=== PATIENT | female | born 1945 | race Caucasian/White ===

== ENCOUNTER 2017-09-14 08:00 | Outpatient (CLI) | payer MEDICARE ==
[2017-09-14 13:20] LABS: ALBUMIN 4.1 g/dL (3.2-5.5); ALBUMIN/GLOBULIN RATIO 1.7 (1.0-2.2); ALKALINE PHOSPHATASE 89 IU/L (42-121); ALT ALANINE AMINOTRANSFERASE 16 IU/L (10-60); AST ASPARTATE AMINOTRANSFERASE 20 IU/L (10-42); BILIRUBIN,TOTAL 0.5 mg/dL (0.2-1.0); BUN - BLOOD UREA NITROGEN 20 mg/dL (6-20); CARBON DIOXIDE - CO2 29 mmol/L (21-32); CHLORIDE 102 mmol/L (101-111); CHOLESTEROL 243 mg/dL; GFR - MDRD 54 (>89); GLUCOSE 98 mg/dL (70-100); HDL CHOLESTEROL 61 mg/dL; LDL CHOLESTEROL,CALCULATED 143 mg/dL; LDL/HDL RATIO 2.3 (<4.4); SODIUM 139 mmol/L (135-145); TOTAL PROTEIN 6.5 g/dL (6.7-8.2); VLDL CHOLESTEROL 39 mg/dL
[2017-09-14 13:26] LABS: BASOPHILS % (AUTO) 0.6 %; EOSINOPHILS # (AUTO) 0.2 10^3/uL (0.0-0.7); EOSINOPHILS % (AUTO) 3.9 %; HGB - HEMOGLOBIN 15.4 g/dL (12.0-16.0); LYMPHOCYTES # (AUTO) 0.9 10^3/uL (1.5-3.5); LYMPHOCYTES % (AUTO) 16.9 %; MEAN CORPUSCULAR HEMOGLOBIN 31.1 pg (27.0-31.0); MEAN CORPUSCULAR VOLUME 91.6 fL (81.0-99.0); MONOCYTES # (AUTO) 0.5 10^3/uL (0.0-1.0); MONOCYTES % (AUTO) 9.8 %; NEUTROPHILS # (AUTO) 3.5 10^3/uL (1.5-6.6); NEUTROPHILS % (AUTO) 68.8 %; RED BLOOD COUNT 4.96 10^6/uL (4.20-5.40); RED CELL DISTRIBUTION WIDTH 12.9 % (12.0-15.0); WHITE BLOOD COUNT 5.1 x10^3/uL (4.8-10.8)
== END 2017-09-14 08:01 | disposition home or self-care (01) ==
LOC: LAB.WCP 08:00
PROVIDERS: ATTEND Physician Assistant Medical
DX: E78.5 Hyperlipidemia, unspecified (principal); K21.9 Gastro-esophageal reflux disease without esophagitis
CPT/HCPCS: 36415; 80053; 80061; 85025

== ENCOUNTER 2018-05-14 09:07 | Emergency (ER) | payer MEDICARE, BC ==
[2018-05-14 09:24] VITALS: BP 133/66
== END 2018-05-14 09:56 | disposition left against medical advice (07) ==
LOC: ED 09:07
DX: Z53.21 Procedure and treatment not carried out due to patient leaving prior to being seen by health care provider (principal)

== ENCOUNTER 2018-09-11 11:15 | Emergency (ER) | payer MEDICARE, BC ==
[2018-09-11] MEDS ORDERED: DEXAMETHASONE 10 MG/ML VIAL PO STA (12:02)
[2018-09-11] MEDS ORDERED: CHERRY SYRUP 10 ML UDC PO ONE (12:09)
--- NOTE | 2018-09-11 13:40 | XRAY Report ---
Reason: Twisting injury with pop, pain with weight bearing Procedure Date: 09/11/2018 Accession Number: [id number] / [id number] Procedure: XR - Hip w/Pelvis 2-3V LT CPT Code: FULL RESULT: EXAM: LEFT HIP AND PELVIS RADIOGRAPHY EXAM DATE: 09/11/2018 12:20 PM. HISTORY: Twisting injury with pop, pain with weight bearing. COMPARISONS: 02/23/2017. TECHNIQUE: 1 view of the pelvis and 1 view of the hip. FINDINGS: Bones: The bones are intact without evidence of a fracture. There is minor enthesopathy of the iliac wings and greater trochanters bilaterally. There are old healed fracture deformities of the left superior and inferior pubic rami. Joints: Normal joint alignment. The upper portions of the sacroiliac joints are not visualized well and may be fused. Possible chondrocalcinosis in the pubic symphysis. Multilevel disk space narrowing and facet hypertrophy in the lower lumbar spine. Soft Tissues: Normal. No soft tissue swelling. IMPRESSION: No acute abnormality. RADIA
--- NOTE | 2018-09-11 13:58 | ED Physician Documentation ---
PD HPI LOWER EXT INJURY - Stated complaint Stated Complaint: L HIP PX - Chief complaint Chief Complaint: Ext Problem - History obtained from History obtained from: Patient, Family - History of Present Illness PD HPI LOW EXT INJURY LOCATION: Left, Hip Type of injury: Twist Where injury occurred: Home Timing - onset: Today Timing - duration: Minutes Timing - details: Abrupt onset, Still present Improved by: Rest, Immobilization Worsened by: Moving, Palpating Associated symptoms: No: Weakness, Numbness, Tingling, Swelling Contributing factors: No: Anticoagulated Similar symptoms before: Has not had sx before Recently seen: Not recently seen - Additional information Additional information: 73-year-old female in her usual good state of health was in the shower today when she turned a specific way felt a pop and has severe pain in her left hip. This brought her to her knees and she needed assistance. She is come in now with pain in the posterior portion of her hip and she is able to move the leg without exacerbating this. Review of Systems Constitutional: denies: Fever Eyes: denies: Decreased vision Ears: denies: Ear pain Nose: denies: Congestion Throat: denies: Sore throat Cardiac: denies: Chest pain / pressure, Palpitations Respiratory: denies: Dyspnea, Cough GI: denies: Abdominal Pain, Nausea, Vomiting, Constipation, Diarrhea : denies: Dysuria Skin: denies: Rash Musculoskeletal: reports: Extremity pain. 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 HEENT: None Psych: None Musculoskeletal: Osteoarthritis Derm: None Other Past Medical History: esophagus nutcracker disorder - Past Surgical History Past Surgical History: Yes Ortho: Arthroscopic surgery /BUSINESS BANKING OFFICER: Hysterectomy, Mastectomy - Present Medications Home Medications: Ambulatory Orders Medication Instructions Recorded Confirmed traZODone [Desyrel] 50 mg PO HS 04/08/15 09/11/18 Methocarbamol [Robaxin-750] 750 mg ORAL DAILY 09/11/18 09/11/18 Omeprazole 40 mg ORAL DAILY 09/11/18 09/11/18 - Allergies Allergies/Adverse Reactions: Allergies Allergy/AdvReac Type Severity Reaction Status Date / Time hydrocodone bitartrate * AdvReac Intermediate "completely Verified 09/11/18 11:25 [From Vicodin] out of it after only one" oxycodone AdvReac Hallucinati Verified 09/11/18 11:25 ons - Social History Does the pt smoke?: No Smoking Status: Never smoker Does the pt drink ETOH?: No Does the pt have substance abuse?: No - Immunizations Immunizations are current?: No Immunizations: TDAP current <10years - POLST Patient has POLST: No PD ED PE NORMAL - Vitals Vital signs reviewed: Yes (normal ) - General General: No acute distress, Well developed/nourished - HEENT HEENT: Atraumatic, PERRL, EOMI - Neck Neck: Supple, no meningeal sign - Respiratory Respiratory: No respiratory distress - Derm Derm: Normal color, Warm and dry, No rash - Extremities Extremities: No deformity, No edema, Other (There is specific point tenderness to the left posterior trochanter. There is no pain to ROM testing of the joint itself and distal n/v is intact. 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, No motor deficit, No sensory deficit, Normal speech Eye Opening: Spontaneous Motor: Obeys Commands Verbal: Oriented GCS Score: 15 - Psych Psych: Normal mood, Normal affect Results - Vitals Vitals: Vital Signs - 24 hr 09/11/18 11:22 Temperature 37 C Heart Rate 66 Respiratory 18 Rate Blood Pressure 126/68 O2 Saturation 100 Oxygen O2 Source Room air - Rads (name of study) left hip Radiology: Prelim report reviewed (Impression: No acute abnormality.), EMP read indepedently, See rad report PD MEDICAL DECISION MAKING - ED course Complexity details: considered differential, d/w patient, d/w family ED course: 73-year-old female with a twisting injury resulting in severe right hip pain appears to have pain in the posterior bursal area to the trochanter. She is administered dexamethasone 10 mg orally and x-rays without evidence of fracture she has improvement in her pain while she is here in the emergency department. She is instructed to seek orthopedic follow-up if she has worsening of her pain. Departure - Departure Disposition: Home, Self Care Clinical Impression: Trochanteric bursitis of left hip Instructions: ED Bursitis Follow-Up: Melissa Corona PA-C [Primary Care Provider] - Eduardo Serna DO [Physician No Access] -
[2018-09-11 14:24] VITALS: BP 126/65
== END 2018-09-11 14:23 | disposition home or self-care (01) ==
LOC: ED 11:15
DX: M70.62 Trochanteric bursitis, left hip (principal); X50.1XXA Overexertion from prolonged static or awkward postures, initial encounter; Y93.E1 Activity, personal bathing and showering; Y92.002 Bathroom of unspecified non-institutional (private) residence as the place of occurrence of the external cause; M19.90 Unspecified osteoarthritis, unspecified site; Z85.3 Personal history of malignant neoplasm of breast
CPT/HCPCS: 73502; 99283; A9270

== ENCOUNTER 2018-11-08 07:53 | Outpatient (CLI) | payer MEDICARE, BC ==
--- NOTE | 2018-11-09 09:11 | Mammography Report ---
Reason: SCREENING MAMMO Procedure Date: 11/08/2018 Accession Number: [id number] / [id number] Procedure: ALYES - Screening Mammo Left w/Robert CPT Code: FULL RESULT: EXAM: Screening Mammo Left w/Robert DATE: 11/08/2018 8:59 AM CLINICAL HISTORY: Screening encounter. Personal history of right breast cancer status post mastectomy in 1986. TECHNIQUE: Left breast CC and MLO images are obtained. COMPARISON: 02/22/2016 through 11/15/2010. FINDINGS: Left breast demonstrates scattered fibroglandular elements. A few well-circumscribed isodense nodules measuring 5 mm or less demonstrated greater than two-year stability, typically benign. No suspicious masses, clustered microcalcifications, or regions of architectural distortion are identified. IMPRESSION: Benign findings RECOMMENDATION: Routine annual screening unless otherwise clinically indicated. BIRADS CATEGORY 2: Benign findings STANDARD QUALIFYING STATEMENTS: 1. This examination was not reviewed with the aid of Computer-Aided Detection (CAD). 2. A negative or benign imaging report should not delay biopsy if clinically suspicious findings are present. Consider surgical consultation if warrented. More than 5% of cancers are not identified by imaging. 3. Dense breasts may obscure an underlying neoplasm. 4. This examination was reviewed with the aid of 3D breast imaging (tomosynthesis).
== END 2018-11-08 07:54 | disposition home or self-care (01) ==
LOC: DI 07:53
DX: Z12.31 Encounter for screening mammogram for malignant neoplasm of breast (principal); Z85.3 Personal history of malignant neoplasm of breast; Z90.11 Acquired absence of right breast and nipple
CPT/HCPCS: 77063

== ENCOUNTER 2018-11-12 11:26 | Outpatient (CLI) | payer MEDICARE, BC ==
--- NOTE | 2018-11-12 14:16 | XRAY Report ---
Reason: HAND PAIN, LEFT Procedure Date: 11/12/2018 Accession Number: [id number] / [id number] Procedure: WCP - Hand 2 View LT CPT Code: FULL RESULT: EXAM: LEFT HAND RADIOGRAPHY EXAM DATE: 11/12/2018 11:39 AM. CLINICAL HISTORY: HAND PAIN, LEFT. COMPARISON: None. TECHNIQUE: 2 views. FINDINGS: Bones: No fractures or bone lesions. Joints: Arthritis at the base of the thumb is again seen, status post trapezium resection. Soft Tissues: Normal. No soft tissue swelling. IMPRESSION: Status post trapezium resection. RADIA
--- NOTE | 2018-11-12 14:20 | XRAY Report ---
Reason: DYSPNEA ON EXERTION Procedure Date: 11/12/2018 Accession Number: [id number] / [id number] Procedure: WCP - Chest 2 View X-Ray CPT Code: 27136 FULL RESULT: EXAM: CHEST RADIOGRAPHY EXAM DATE: 11/12/2018 11:39 AM. CLINICAL HISTORY: DYSPNEA ON EXERTION. COMPARISON: CHEST 2 VIEW 09/21/2017 11:10 AM. TECHNIQUE: 2 views. FINDINGS: Lungs/Pleura: No focal opacities evident. No pleural effusion. No pneumothorax. Normal volumes. Mediastinum: Stable cardiomediastinal silhouette, cardiac size within the upper limits of normal. Other: None. IMPRESSION: No acute cardiopulmonary abnormality. RADIA
== END 2018-11-12 11:27 | disposition home or self-care (01) ==
LOC: DI.WCP 11:26
PROVIDERS: ATTEND Physician Assistant Medical
DX: R06.09 Other forms of dyspnea (principal); M25.542 Pain in joints of left hand
CPT/HCPCS: 71046

== ENCOUNTER 2018-11-15 17:13 | Outpatient (CLI) | payer MEDICARE, BC | END 2018-11-15 17:14 | disposition critical access hospital (66) | LOC: EMS 17:13 | PROVIDERS: ATTEND Surgery | DX: R07.9 Chest pain, unspecified (principal) | CPT/HCPCS: A0425; A0427 ==

== ENCOUNTER 2018-11-15 17:34 | Emergency (ER) | payer MEDICARE, BC ==
[2018-11-15] MEDS ORDERED: NITROGLYCERIN 2% PASTE TOP STA (18:16)
--- NOTE | 2018-11-15 18:18 | ED Physician Documentation ---
PD HPI CHEST PAIN - Stated complaint Stated Complaint: CP - Chief complaint Chief Complaint: Cardiac - History obtained from History obtained from: Patient - History of Present Illness Timing - onset: Other (Starting at rest at 3 PM today she developed substernal chest pressure radiating to the posterior neck. It felt similar to but also different than prior esophageal nutcracker syndrome. She also feels fatigued and short of breath with it. 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 HEENT: None Psych: None Musculoskeletal: Osteoarthritis Derm: None - Past Surgical History Past Surgical History: Yes Ortho: Arthroscopic surgery /GROUP WORK PROGRAM DIRECTOR: Hysterectomy, Mastectomy - Present Medications Home Medications: Ambulatory Orders Medication Instructions Recorded Confirmed traZODone [Desyrel] 50 mg PO HS 04/08/15 11/15/18 Methocarbamol [Robaxin-750] 750 mg ORAL DAILY PRN 09/11/18 11/15/18 Omeprazole 40 mg ORAL DAILY 09/11/18 11/15/18 Azithromycin 250 mg PO DAILY 11/15/18 11/15/18 - Allergies Allergies/Adverse Reactions: Allergies Allergy/AdvReac Type Severity Reaction Status Date / Time hydrocodone bitartrate * AdvReac Intermediate "completely Verified 11/15/18 19:17 [From Vicodin] out of it after only one" oxycodone AdvReac Hallucinati Verified 11/15/18 19:17 ons - Social History Does the pt smoke?: No Smoking Status: Never smoker Does the pt drink ETOH?: No Does the pt have substance abuse?: No - Immunizations Immunizations are current?: No Immunizations: TDAP current <10years - POLST Patient has POLST: No PD ED PE NORMAL - Vitals Vital signs reviewed: Yes - General General: Alert and oriented X 3, No acute distress - HEENT HEENT: PERRL, EOMI, Pharynx benign - Neck Neck: Supple, no meningeal sign, No bony TTP - Cardiac Cardiac: RRR, No murmur - Respiratory Respiratory: No respiratory distress, Clear bilaterally - Abdomen Abdomen: Non tender - Back Back: No CVA TTP, No spinal TTP - Derm Derm: Normal color, Warm and dry - Extremities Extremities: No edema, No calf tenderness / cord - Neuro Neuro: Alert and oriented X 3, Normal speech Results - Vitals Vitals: Vital Signs - 24 hr 11/15/18 11/15/18 11/15/18 17:37 18:33 19:14 Temperature 36.2 C L 36.5 C 36.3 C L Heart Rate 62 57 L 66 Respiratory 20 17 21 Rate Blood Pressure 134/75 H 129/67 128/56 L O2 Saturation 99 97 97 11/15/18 11/15/18 11/15/18 19:50 20:30 20:56 Temperature Heart Rate 65 66 63 Respiratory 15 15 16 Rate Blood Pressure 132/58 H 92/61 103/52 L O2 Saturation 96 97 96 Oxygen O2 Source Room air - EKG (time done) 1743 Rate: Rate (enter#) (58) Rhythm: NSR [place]: Normal Intervals: Normal [place] QRS: Normal Ischemia: Normal ST segments Computer interpretation: Agree with computer - Labs Labs: Laboratory Tests 11/15/18 11/15/18 11/15/18 19:30 19:30 19:30 WBC 5.4 RBC 4.62 Hgb 14.3 Hct 43.2 MCV 93.5 MCH 30.9 MCHC 33.0 RDW 13.5 Plt Count 195 MPV 8.3 Neut # (Auto) 3.1 Lymph # (Auto) 1.7 Wilkes # (Auto) 0.4 Eos # (Auto) 0.1 Baso # (Auto) 0.0 Absolute Nucleated RBC 0.00 Nucleated RBC % 0.0 Sodium 139 Potassium 4.0 Chloride 102 Carbon Dioxide 28 Anion Gap 9.0 BUN 18 Creatinine 0.8 Estimated GFR (MDRD) 70 L Glucose 121 H Calcium 9.0 Total Bilirubin 0.6 AST 20 ALT 15 Alkaline Phosphatase 87 Troponin I < 0.04 Total Protein 6.3 L Albumin 3.8 Globulin 2.5 Albumin/Globulin Ratio 1.5 Lipase 30 11/15/18 21:35 WBC RBC Hgb Hct MCV MCH MCHC RDW Plt Count MPV Neut # (Auto) Lymph # (Auto) [place] # (Auto) Eos # (Auto) Baso # (Auto) Absolute Nucleated RBC Nucleated RBC % Sodium Potassium Chloride Carbon Dioxide Anion Gap BUN Creatinine Estimated GFR (MDRD) Glucose Calcium Total Bilirubin AST ALT Alkaline Phosphatase Troponin I < 0.04 Total Protein Albumin Globulin Albumin/Globulin Ratio Lipase - Rads (name of study) 1v chest Radiology: EMP read contemporaneously (NAD) PD MEDICAL DECISION MAKING - ED course ED course: This is a 73-year-old woman with history of nutcracker esophagus who presents with chest pain. There is no pulse deficits, wide mediastinum or radiation to the back to suggest dissection. Nothing in the history or physical examination to suggest PE. She did have relief although it was fleeting with GI cocktail here x2. Delta troponins were done in the emergency department, both undetectable without change. She did have some increase in her symptoms but no changes on serial EKGs. Departure - Departure Disposition: 01 Home, Self Care Clinical Impression: Atypical chest pain Condition: Good Record reviewed to determine appropriate education?: Yes Instructions: ED Chest Pain Atypical Unkn Cause Comments: Although cardiac testing tonight is reassuring, he should follow-up call your doctor tomorrow for an appointment, he or she will likely want to schedule you for a stress test. Return for new or worsening symptoms.
--- NOTE | 2018-11-15 18:43 | XRAY Report ---
Reason: chest pain Procedure Date: 11/15/2018 Accession Number: [id number] / [id number] Procedure: XR - Chest 1 View X-Ray CPT Code: 61875 FULL RESULT: EXAM: CHEST RADIOGRAPHY EXAM DATE: 11/15/2018 06:12 PM. CLINICAL HISTORY: Chest pain. COMPARISON: CHEST 2 VIEW 11/12/2018 11:21 AM. TECHNIQUE: 1 view. FINDINGS: Lungs/Pleura: No dense consolidation. No large effusion or pneumothorax. No pulmonary edema. Mediastinum: Heart and mediastinal contours are unremarkable. Other: Postoperative changes of prior right mastectomy and reconstruction. IMPRESSION: No acute radiographic pulmonary abnormalities. RADIA
[2018-11-15 19:45] LABS: BASOPHILS % (AUTO) 0.8 %; EOSINOPHILS # (AUTO) 0.1 10^3/uL (0.0-0.7); EOSINOPHILS % (AUTO) 1.1 %; HGB - HEMOGLOBIN 14.3 g/dL (12.0-16.0); LYMPHOCYTES # (AUTO) 1.7 10^3/uL (1.5-3.5); LYMPHOCYTES % (AUTO) 32.4 %; MEAN CORPUSCULAR HEMOGLOBIN 30.9 pg (27.0-31.0); MEAN CORPUSCULAR VOLUME 93.5 fL (81.0-99.0); MEAN PLATELET VOLUME 8.3 fL (7.9-10.8); MONOCYTES # (AUTO) 0.4 10^3/uL (0.0-1.0); MONOCYTES % (AUTO) 7.6 %; NEUTROPHILS # (AUTO) 3.1 10^3/uL (1.5-6.6); NEUTROPHILS % (AUTO) 58.1 %; PLT - PLATELET COUNT 195 10^3/uL (130-450); RED BLOOD COUNT 4.62 10^6/uL (4.20-5.40); RED CELL DISTRIBUTION WIDTH 13.5 % (12.0-15.0); WHITE BLOOD COUNT 5.4 x10^3/uL (4.8-10.8)
[2018-11-15 19:53] LABS: ALBUMIN 3.8 g/dL (3.2-5.5); ALBUMIN/GLOBULIN RATIO 1.5 (1.0-2.2); BILIRUBIN,TOTAL 0.6 mg/dL (0.2-1.0); CREATININE 0.8 mg/dL (0.4-1.0); TOTAL PROTEIN 6.3 g/dL (6.7-8.2)
[2018-11-15] MEDS ORDERED: MAG HYDROX/AL HYDROX/SIMETH 30 ML UDC PO STA ×2 (20:17→21:14)
[2018-11-15] MEDS ORDERED: LIDOCAINE VISCOUS 2% 15 ML UDC MM STA ×2 (20:17→21:14)
[2018-11-15 21:58] VITALS: BP 106/56
== END 2018-11-15 21:59 | disposition home or self-care (01) ==
LOC: EDUNIT# → ED 17:34
DX: R07.89 Other chest pain (principal); Z85.3 Personal history of malignant neoplasm of breast; Z90.10 Acquired absence of unspecified breast and nipple
CPT/HCPCS: 36415; 71045; 80053; 83690; 84484; 85025; 93005; 99283; 99284; A9270

== ENCOUNTER 2019-01-24 12:56 | Outpatient (CLI) | payer MEDICARE, BC ==
--- NOTE | 2019-01-25 09:42 | MRI Report ---
Reason: ACUTE TEAR MEDIAL MENISCUS Procedure Date: 01/24/2019 Accession Number: [id number] / [id number] Procedure: MRI - Knee LT W/O CPT Code: FULL RESULT: EXAM: LEFT KNEE MRI WITHOUT CONTRAST EXAM DATE: 01/24/2019 01:52 PM. CLINICAL HISTORY: Acute tear medial meniscus. COMPARISON: MRI 08/19/2008. TECHNIQUE: Multiplanar, multisequence T1-weighted and fluid-sensitive sequences of the knee without contrast. Other: None. FINDINGS: Bones: Moderate to severe bone marrow edema at the medial compartment, slightly progressed. Moderate bone marrow edema and cystic changes at the posterior lateral aspect lateral tibial plateau, slightly progressed. A component of this may be due to intraosseous ganglion. Minimal bone marrow edema at the median ridge of the patella. No fracture. Articular Cartilage: Large regions of full-thickness cartilage loss medial compartment. Shallow partial thickness loss lateral compartment. Moderate to large region of deep partial-thickness loss medial patellar facet. These have slightly progressed. Medial Meniscus: Degenerative fraying at the free edges with subtle horizontal tear contacting the superior articular surface posterior horn, slightly progressed. Lateral Meniscus: Degenerative fraying at the free edges. Cruciate Ligaments: The anterior and posterior cruciate ligaments are intact. Collateral Ligaments: Likely reactive edema at the proximal aspect medial collateral ligament. Lateral collateral ligament normal in morphology. Tendons: Mild patellar tendinopathy, new. Quadriceps, popliteus, and semimembranosus tendons unremarkable. Musculature: No edema or fatty atrophy. Other: Small joint effusion with synovitis. Minimal popliteal cyst with leak. 2.4 cm multilobulated focus of fluid at the posterior lateral aspect lateral compartment, suggestive of ganglion. Subtle 2.0 cm multilobulated ganglion at the anterior aspect proximal fibula, likely arising from the tibiofibular joint. No loose bodies. The medial and lateral retinacula are intact. Mild subcutaneous edema anteriorly. Mild reactive edema in the anterior fat pads. IMPRESSION: 1. Degenerative fraying medial meniscus with subtle horizontal tear posterior horn, slightly progressed. 2. Degenerative fraying lateral meniscus. 3. Reactive edema medial collateral ligament. 4. Tricompartmental cartilage loss, severe at the medial compartment, slightly progressed. 5. Small joint effusion with synovitis. 6. Minimal popliteal cyst with leak. 7. 2.4 cm multilobulated ganglion posterior aspect lateral compartment. This may arise from the proximal tibiofibular joint. 8. 2.0 cm multilobulated ganglion at the anterior aspect proximal fibula, likely arising from the tibiofibular joint. 9. Reactive cyst versus intraosseous ganglion at the posterior lateral margin lateral tibial plateau. 10. New mild patellar tendinopathy. RADIA
== END 2019-01-24 12:57 | disposition home or self-care (01) ==
LOC: DI 12:56
PROVIDERS: ATTEND Family Medicine
DX: S83.242A Other tear of medial meniscus, current injury, left knee, initial encounter (principal); M17.12 Unilateral primary osteoarthritis, left knee; M25.462 Effusion, left knee; M65.862 Other synovitis and tenosynovitis, left lower leg; M71.22 Synovial cyst of popliteal space [Baker], left knee; M67.462 Ganglion, left knee; M23.301 Other meniscus derangements, unspecified lateral meniscus, left knee

== ENCOUNTER 2019-05-11 19:05 | Emergency (ER) | payer MEDICARE, BC ==
--- NOTE | 2019-05-11 19:39 | XRAY Report ---
Reason: chest pain, SOA since noon today Procedure Date: 05/11/2019 Accession Number: [id number] / [id number] Procedure: XR - Chest 1 View X-Ray CPT Code: 03284 FULL RESULT: EXAM: CHEST RADIOGRAPHY EXAM DATE: 05/11/2019 07:15 PM. CLINICAL HISTORY: Chest pain, SOA since noon today. COMPARISON: CHEST 1 VIEW 11/15/2018 5:59 PM XR CHEST PA AND LAT 06/09/2011 12:26 PM. TECHNIQUE: 1 view. FINDINGS: Lungs/Pleura: No focal opacities evident. No pleural effusion. No pneumothorax. Mediastinum: Stable cardiomediastinal silhouette. Other: None. IMPRESSION: No evidence for acute cardiothoracic process. RADIA
[2019-05-11 19:40] LABS: BASOPHILS % (AUTO) 0.3 %; EOSINOPHILS % (AUTO) 0.7 %; HGB - HEMOGLOBIN 14.1 g/dL (12.0-16.0); LYMPHOCYTES # (AUTO) 0.9 10^3/uL (1.5-3.5); LYMPHOCYTES % (AUTO) 15.4 %; MEAN CORPUSCULAR HEMOGLOBIN 29.8 pg (27.0-31.0); MEAN CORPUSCULAR HGB CONC 32.4 g/dL (32.0-36.0); MONOCYTES # (AUTO) 0.6 10^3/uL (0.0-1.0); MONOCYTES % (AUTO) 9.5 %; NEUTROPHILS # (AUTO) 4.5 10^3/uL (1.5-6.6); NEUTROPHILS % (AUTO) 73.8 %; PLT - PLATELET COUNT 146 10^3/uL (130-450); RED BLOOD COUNT 4.73 10^6/uL (4.20-5.40); RED CELL DISTRIBUTION WIDTH 12.9 % (12.0-15.0); WHITE BLOOD COUNT 6.1 x10^3/uL (4.8-10.8)
[2019-05-11 19:52] LABS: ALBUMIN 3.9 g/dL (3.2-5.5); ALBUMIN/GLOBULIN RATIO 1.4 (1.0-2.2); BILIRUBIN,TOTAL 0.5 mg/dL (0.2-1.0); CALCIUM 8.9 mg/dL (8.5-10.3); TOTAL PROTEIN 6.6 g/dL (6.7-8.2)
--- NOTE | 2019-05-11 20:24 | ED Physician Documentation ---
PD HPI CHEST PAIN - Stated complaint Stated Complaint: CP/FEVER - Chief complaint Chief Complaint: Cardiac - History obtained from History obtained from: Patient, Family - History of Present Illness Timing - onset: Enter time (1700), Today Timing - onset during: Rest Timing - duration: Minutes Timing - details: Abrupt onset, Now resolved Quality: Pressure, Sharp Location: Substernal Radiation: Back Improved by: Other (carafate) Worsened by: Eating Associated symptoms: Cough. 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 She eventually took some Carafate and this improved. She became concerned when she developed a fever and cough and she has not felt well this evening. She has been exposed to grandchildren in the last 2 days. She states that she feels ill she is had a fever she is taken some aspirin for this. She does have a prior history of work-up for chest pain including multiple stress test all of which were negative. She has a history of longevity in her family. Review of Systems Constitutional: reports: Fever, Chills, Myalgias, Fatigue Eyes: denies: Decreased vision Ears: reports: Other (dizziness, muffled hearing). denies: Ear pain Nose: reports: Congestion Throat: reports: Other (taste perversion today). denies: Sore throat Cardiac: reports: Chest pain / pressure. denies: Palpitations Respiratory: reports: Cough. 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 : None HEENT: None Psych: None Musculoskeletal: Osteoarthritis Derm: None Other Past Medical History: esophageal nutcracker disorder - Past Surgical History Past Surgical History: Yes Ortho: Arthroscopic surgery /ORDNANCE ARTIFICER HELPER: Hysterectomy, Mastectomy - Present Medications Home Medications: Ambulatory Orders Medication Instructions Recorded Confirmed traZODone [Desyrel] 50 mg PO HS 04/08/15 05/11/19 Methocarbamol [Robaxin-750] 750 mg ORAL DAILY PRN 09/11/18 05/11/19 Omeprazole 40 mg ORAL DAILY 09/11/18 05/11/19 Azithromycin [Zithromax] 250 mg PO DAILY #6 tablet 05/11/19 - Allergies Allergies/Adverse Reactions: Allergies Allergy/AdvReac Type Severity Reaction Status Date / Time hydrocodone bitartrate * AdvReac Intermediate "completely Verified 05/11/19 19:21 [From Vicodin] out of it after only one" oxycodone AdvReac Hallucinati Verified 05/11/19 19:21 ons - Social History Does the pt smoke?: No Smoking Status: Former smoker Does the pt drink ETOH?: No Does the pt have substance abuse?: No - Immunizations Immunizations are current?: Yes Immunizations: TDAP current <10years - POLST Patient has POLST: No PD ED PE NORMAL - Vitals Vital signs reviewed: Yes (low grade fever and hypertension ) - General General: Alert and oriented X 3, Well developed/nourished, Other (look of concern on face stable manager tone and does not feel well ) - HEENT HEENT: Atraumatic, PERRL, EOMI, Other (erythema to the right TM over the umbo and swelling of the right tonsil left is clear. 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-12 intact, No motor deficit, No sensory deficit, Normal speech Eye Opening: Spontaneous Motor: Obeys Commands Verbal: Oriented GCS Score: 15 - Psych Psych: Normal mood, Normal affect Results - Vitals Vitals: Vital Signs - 24 hr 05/11/19 05/11/19 19:13 19:19 Temperature 37.6 C H Heart Rate 63 65 Respiratory 17 16 Rate Blood Pressure 162/71 H 162/71 H O2 Saturation 97 96 Oxygen O2 Source Room air - EKG (time done) 1915 Rate: Rate (enter#) (62) Rhythm: NSR, LAE Ischemia: Normal ST segments Compare to prior EKG: Unchanged from prior EKG (SPT 11-15-2018 no changes ) Computer interpretation: Agree with computer - Labs Labs: Laboratory Tests 05/11/19 05/11/19 05/11/19 19:25 19:25 19:25 WBC 6.1 RBC 4.73 Hgb 14.1 Hct 43.5 MCV 92.0 MCH 29.8 MCHC 32.4 RDW 12.9 Plt Count 146 MPV 10.0 Neut # (Auto) 4.5 Lymph # (Auto) 0.9 L [place] # (Auto) 0.6 Eos # (Auto) 0.0 Baso # (Auto) 0.0 Absolute Nucleated RBC 0.00 Nucleated RBC % 0.0 Sodium 139 Potassium 4.4 Chloride 105 Carbon Dioxide 26 Anion Gap 8.0 BUN 20 Creatinine 1.0 Estimated GFR (MDRD) 54 L Glucose 103 H Calcium 8.9 Total Bilirubin 0.5 AST 19 ALT 17 Alkaline Phosphatase 78 Troponin I High Sens 4.1 Total Protein 6.6 L Albumin 3.9 Globulin 2.7 Albumin/Globulin Ratio 1.4 Lipase 89 H - Rads (name of study) chest Radiology: Prelim report reviewed (Impression: No evidence for acute cardiothoracic process.), EMP read indepedently, See rad report PD MEDICAL DECISION MAKING - ED course Complexity details: reviewed old records, reviewed results, re-evaluated patient, considered differential, d/w patient, d/w family ED course: 73-year-old female presents to the emergency department with chest pain and fever. Her chest pain is similar to what she is had previously with nutcracker esophagus she is had extensive evaluation of this and she has had relief with her typical medication for this when she took the Carafate. She has developed fever and cough and has exposure to 5-4-tnog-old grandchildren and on examination she has right otitis media. She is treated in the emerge department with dexamethasone 10 mg orally and Rocephin 1 g intravenously. Her chest x-ray is without evidence of infiltrate and her diagnostics are otherwise unremarkable. Departure - Departure Disposition: 01 Home, Self Care Clinical Impression: Otitis media Qualifiers: Otitis media type: suppurative Chronicity: acute Laterality: right Recurrence: non-recurrent Spontaneous tympanic membrane rupture: without spontaneous rupture Qualified Code(s): H66.001 - Acute suppurative otitis media without spontaneous rupture of ear drum, right ear Condition: Stable Instructions: ED Otitis Media Acute Adult Follow-Up: Melissa Corona PA-C [Primary Care Provider] - Prescriptions: Azithromycin [Zithromax] 250 mg PO DAILY #6 tablet
[2019-05-11] MEDS ORDERED: CHERRY SYRUP 10 ML UDC PO ONE (20:29)
[2019-05-11] MEDS ORDERED: DEXAMETHASONE 10 MG/ML VIAL PO STA (20:29)
[2019-05-11] MEDS ORDERED: cefTRIAXone 1 GM in SODIUM CHLORIDE 0.9% MINIBAG 100 ML IV STA (20:29)
[2019-05-11 21:08] VITALS: BP 158/51
== END 2019-05-11 21:09 | disposition home or self-care (01) ==
LOC: ED 19:05
DX: H66.001 Acute suppurative otitis media without spontaneous rupture of ear drum, right ear (principal); R07.89 Other chest pain; K22.4 Dyskinesia of esophagus; K21.9 Gastro-esophageal reflux disease without esophagitis; Z87.891 Personal history of nicotine dependence
CPT/HCPCS: 36415; 71045; 80053; 83690; 84484; 85025; 93005; 96365; 99284; A9270

== ENCOUNTER 2019-06-23 02:58 | Outpatient (CLI) | payer MEDICARE, BC | END 2019-06-23 02:59 | disposition critical access hospital (66) | LOC: EMS 02:58 | PROVIDERS: ATTEND Surgery | DX: M25.562 Pain in left knee (principal); R61 Generalized hyperhidrosis | CPT/HCPCS: A0425; A0429 ==

== ENCOUNTER 2019-06-23 03:20 | Emergency (ER) | payer MEDICARE, BC ==
[2019-06-23] MEDS ORDERED: MORPHINE 2 MG/ML CARPUJECT IVP STA (03:32)
[2019-06-23] MEDS ORDERED: ONDANSETRON 4 MG/2 ML VIAL IVP STA (03:33)
[2019-06-23 04:22] LABS: ALBUMIN 3.4 g/dL (3.2-5.5); ALBUMIN/GLOBULIN RATIO 1.2 (1.0-2.2); BILIRUBIN,TOTAL 0.6 mg/dL (0.2-1.0); CALCIUM 9.2 mg/dL (8.5-10.3); CREATININE 0.9 mg/dL (0.4-1.0); TOTAL PROTEIN 6.2 g/dL (6.7-8.2)
[2019-06-23 04:25] LABS: BASOPHILS % (AUTO) 0.4 %; EOSINOPHILS # (AUTO) 0.1 10^3/uL (0.0-0.7); EOSINOPHILS % (AUTO) 2.1 %; HGB - HEMOGLOBIN 13.8 g/dL (12.0-16.0); LYMPHOCYTES % (AUTO) 41.5 %; MEAN CORPUSCULAR HEMOGLOBIN 30.5 pg (27.0-31.0); MEAN CORPUSCULAR VOLUME 92.5 fL (81.0-99.0); MEAN PLATELET VOLUME 9.9 fL (7.9-10.8); MONOCYTES # (AUTO) 0.5 10^3/uL (0.0-1.0); MONOCYTES % (AUTO) 10.2 %; NEUTROPHILS # (AUTO) 2.2 10^3/uL (1.5-6.6); NEUTROPHILS % (AUTO) 45.6 %; PLT - PLATELET COUNT 223 10^3/uL (130-450); RED BLOOD COUNT 4.52 10^6/uL (4.20-5.40); RED CELL DISTRIBUTION WIDTH 12.5 % (12.0-15.0); WHITE BLOOD COUNT 4.8 x10^3/uL (4.8-10.8)
--- NOTE | 2019-06-23 04:41 | XRAY Report ---
Reason: swelling/pain s/p partial replacement Procedure Date: 06/23/2019 Accession Number: [id number] / [id number] Procedure: XR - Knee 2 View LT CPT Code: FULL RESULT: EXAM: LEFT KNEE RADIOGRAPHY EXAM DATE: 06/23/2019 04:15 AM. CLINICAL HISTORY: Swelling/pain status post partial replacement. COMPARISON: None. TECHNIQUE: 2 views. FINDINGS: Bones and Joints: Post medial compartment knee replacement with unremarkable appearing surgical hardware. No fracture or malalignment seen. Joint effusion present. Soft Tissues: Mild soft tissue swelling. IMPRESSION: 1. Post medial compartment knee replacement with unremarkable appearing surgical hardware. 2. No fracture or malalignment seen. 3. Joint effusion present. RADIA
--- NOTE | 2019-06-23 05:09 | ED Physician Documentation ---
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: Breast cancer : None HEENT: None Psych: None Musculoskeletal: Osteoarthritis Derm: None - Past Surgical History Past Surgical History: Yes Ortho: Knee replacement, Arthroscopic surgery /LITERACY SPECIALIST: Hysterectomy, Mastectomy - Present Medications Home Medications: Ambulatory Orders Medication Instructions Recorded Confirmed traZODone [Desyrel] 50 mg PO HS 04/08/15 06/23/19 Methocarbamol [Robaxin-750] 750 mg ORAL DAILY PRN 09/11/18 06/23/19 Omeprazole 40 mg ORAL DAILY 09/11/18 06/23/19 - Allergies Allergies/Adverse Reactions: Allergies Allergy/AdvReac Type Severity Reaction Status Date / Time hydrocodone bitartrate * AdvReac Intermediate "completely Verified 06/23/19 03:33 [From Vicodin] out of it after only one" oxycodone AdvReac Hallucinati Verified 06/23/19 03:33 ons - Social History Does the pt smoke?: No Smoking Status: Never smoker Does the pt drink ETOH?: No Does the pt have substance abuse?: No - Immunizations Immunizations are current?: Yes Immunizations: TDAP current <10years - POLST Patient has POLST: No Results - Vitals Vitals: Vital Signs - 24 hr 06/23/19 06/23/19 06/23/19 03:20 03:41 04:08 Temperature 36.8 C Heart Rate 64 55 L 51 L Respiratory 16 15 16 Rate Blood Pressure 123/61 123/61 126/56 L O2 Saturation 100 98 98 Oxygen O2 Source Room air - Labs Labs: Laboratory Tests 06/23/19 06/23/19 06/23/19 03:45 03:45 03:45 WBC 4.8 RBC 4.52 Hgb 13.8 Hct 41.8 MCV 92.5 MCH 30.5 MCHC 33.0 RDW 12.5 Plt Count 223 MPV 9.9 Neut # (Auto) 2.2 Lymph # (Auto) 2.0 [place] # (Auto) 0.5 Eos # (Auto) 0.1 Baso # (Auto) 0.0 Absolute Nucleated RBC 0.00 Nucleated RBC % 0.0 ESR Sodium 143 Potassium 4.1 Chloride 107 Carbon Dioxide 28 Anion Gap 8.0 BUN 19 Creatinine 0.9 Estimated GFR (MDRD) 61 L Glucose 103 H Lactic Acid 1.2 Calcium 9.2 Total Bilirubin 0.6 AST 15 ALT 11 Alkaline Phosphatase 81 Total Protein 6.2 L Albumin 3.4 Globulin 2.8 Albumin/Globulin Ratio 1.2 Lipase 32 06/23/19 03:45 WBC RBC Hgb Hct MCV MCH MCHC RDW Plt Count MPV Neut # (Auto) Lymph # (Auto) [place] # (Auto) Eos # (Auto) Baso # (Auto) Absolute Nucleated RBC Nucleated RBC % ESR 7 Sodium Potassium Chloride Carbon Dioxide Anion Gap BUN Creatinine Estimated GFR (MDRD) Glucose Lactic Acid Calcium Total Bilirubin AST ALT Alkaline Phosphatase Total Protein Albumin Globulin Albumin/Globulin Ratio Lipase - Rads (name of study) L knee Radiology: Prelim report reviewed (: 1. Post medial compartment knee replacement with unremarkable appearing surgical hardware. 2. No fracture or malalignment seen. 3. Joint effusion present.), EMP read indepedently, See rad report
--- NOTE | 2019-06-23 05:36 | ED Physician Documentation ---
History of Present Illness - Stated complaint Stated Complaint: KNEE WARM/POST-SURG - Chief complaint Chief Complaint: Ext Problem - History obtained from History obtained from: Patient - History of Present Illness Timing: Today - Additonal information Additional information: 73-year-old female has had a right knee partial replacement done about 12 days ago at [facility] by Dr. Serna. She reports that she was recovering well and she went to do her physical therapy on Monday and she was a bit sore on Monday and discontinued the use of her pain medication on Monday. Early this morning she awoke with sweats and she became concerned that her knee appeared swollen and was warm to the touch. She is concerned about the possibility of infection and she has taken the ambulance to the hospital for evaluation. She has increased pain in the knee. She is sensitive to pain medications and was on Tylenol with codeine No. 3. Review of Systems Constitutional: reports: Chills, Sweats. denies: Fever Eyes: denies: Decreased vision Ears: denies: Ear pain Nose: denies: Rhinorrhea / runny nose, Congestion Throat: denies: Sore throat Respiratory: denies: Dyspnea, Cough GI: denies: Vomiting : denies: Dysuria Musculoskeletal: reports: Extremity pain, Joint swelling, Pain with weight bearing. 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 : None HEENT: None Psych: None Musculoskeletal: Osteoarthritis Derm: None - Past Surgical History Past Surgical History: Yes Ortho: Knee replacement, Arthroscopic surgery /HEAD TELLER: Hysterectomy, Mastectomy - Present Medications Home Medications: Ambulatory Orders Medication Instructions Recorded Confirmed traZODone [Desyrel] 50 mg PO HS 04/08/15 06/23/19 Methocarbamol [Robaxin-750] 750 mg ORAL DAILY PRN 09/11/18 06/23/19 Omeprazole 40 mg ORAL DAILY 09/11/18 06/23/19 Acetaminophen/Cod 300/30 [Tylenol 1 - 2 each PO Q4-6H PRN #20 tablet 06/23/19 #3] - Allergies Allergies/Adverse Reactions: Allergies Allergy/AdvReac Type Severity Reaction Status Date / Time hydrocodone bitartrate * AdvReac Intermediate "completely Verified 06/23/19 03:33 [From Vicodin] out of it after only one" oxycodone AdvReac Hallucinati Verified 06/23/19 03:33 ons - Social History Does the pt smoke?: No Smoking Status: Never smoker Does the pt drink ETOH?: No Does the pt have substance abuse?: No - Immunizations Immunizations are current?: Yes Immunizations: TDAP current <10years - POLST Patient has POLST: No PD ED PE NORMAL - Vitals Vital signs reviewed: Yes (normal ) - General General: Alert and oriented X 3, No acute distress, Well developed/nourished - HEENT HEENT: Atraumatic, PERRL, EOMI - Neck Neck: Supple, no meningeal sign - Cardiac Cardiac: RRR, No murmur - Respiratory Respiratory: No respiratory distress, Clear bilaterally - Abdomen Abdomen: Soft, Non tender - Back Back: No CVA TTP, No spinal TTP - Derm Derm: Normal color, Warm and dry, No rash - Extremities Extremities: Other (The left knee is examined and there is swelling without erythema the knee is tender but appears similar to expected post op. The distal n/v is intact) - Neuro Neuro: Alert and oriented X 3, client success specialist 2-12 intact, No motor deficit, No sensory deficit, Normal speech Eye Opening: Spontaneous Motor: Obeys Commands Verbal: Oriented GCS Score: 15 - Psych Psych: Normal mood, Normal affect Results - Vitals Vitals: Vital Signs - 24 hr 06/23/19 06/23/19 06/23/19 03:20 03:41 04:08 Temperature 36.8 C Heart Rate 64 55 L 51 L Respiratory 16 15 16 Rate Blood Pressure 123/61 123/61 126/56 L O2 Saturation 100 98 98 06/23/19 05:16 Temperature Heart Rate 52 L Respiratory 16 Rate Blood Pressure 148/61 H O2 Saturation 98 Oxygen O2 Source Room air - Labs Labs: Laboratory Tests 06/23/19 06/23/19 06/23/19 03:45 03:45 03:45 WBC 4.8 RBC 4.52 Hgb 13.8 Hct 41.8 MCV 92.5 MCH 30.5 MCHC 33.0 RDW 12.5 Plt Count 223 MPV 9.9 Neut # (Auto) 2.2 Lymph # (Auto) 2.0 [place] # (Auto) 0.5 Eos # (Auto) 0.1 Baso # (Auto) 0.0 Absolute Nucleated RBC 0.00 Nucleated RBC % 0.0 ESR Sodium 143 Potassium 4.1 Chloride 107 Carbon Dioxide 28 Anion Gap 8.0 BUN 19 Creatinine 0.9 Estimated GFR (MDRD) 61 L Glucose 103 H Lactic Acid 1.2 Calcium 9.2 Total Bilirubin 0.6 AST 15 ALT 11 Alkaline Phosphatase 81 Total Protein 6.2 L Albumin 3.4 Globulin 2.8 Albumin/Globulin Ratio 1.2 Lipase 32 06/23/19 03:45 WBC RBC Hgb Hct MCV MCH MCHC RDW Plt Count MPV Neut # (Auto) Lymph # (Auto) [place] # (Auto) Eos # (Auto) Baso # (Auto) Absolute Nucleated RBC Nucleated RBC % ESR 7 Sodium Potassium Chloride Carbon Dioxide Anion Gap BUN Creatinine Estimated GFR (MDRD) Glucose Lactic Acid Calcium Total Bilirubin AST ALT Alkaline Phosphatase Total Protein Albumin Globulin Albumin/Globulin Ratio Lipase - Rads (name of study) knee L Radiology: Prelim report reviewed (Impression: 1. Post medial compartment knee replacement with unremarkable appearing surgical hardware. No fracture or malalignment seen. joint effusion present), EMP read indepedently, See rad report PD MEDICAL DECISION MAKING - ED course Complexity details: reviewed results, re-evaluated patient, considered differential, d/w patient, d/w family ED course: 73-year-old female 12 days postop from a partial right knee replacement has increased pain and swelling after doing physical therapy for the first time and discontinuing her pain medication. I believe the sweats she had in the middle the night were likely related to narcotic withdrawal. She is administered morphine here in the emergency department with improvement in her pain. We will place her back on her pain medication and she will follow-up with her orthopedic surgeon. Today we did not find evidence of infection. Her white blood cell count ESR and exam are all consistent with normal postoperative evaluation. Departure - Departure Disposition: 01 Home, Self Care Clinical Impression: Postoperative pain Condition: Stable Instructions: Knee Replace First Month, Knee Replace Swelling, Knee Replace Manage Pain Home Follow-Up: Melissa Corona PA-C [Primary Care Provider] - Eduardo Serna DO [Physician No Access] - Prescriptions: Acetaminophen/Cod 300/30 [Tylenol #3] 1 - 2 each PO Q4-6H PRN #20 tablet PRN Reason: Pain
[2019-06-23 05:39] LABS: BILIRUBIN,URINE NEGATIVE (NEGATIVE); GLUCOSE, URINE (UA) NEGATIVE (NEGATIVE); KETONES,URINE (UA) NEGATIVE (NEGATIVE); LEUKOCYTE ESTERASE, URINE NEGATIVE (NEGATIVE); NITRITE,URINE NEGATIVE (NEGATIVE); OCCULT BLOOD,URINE NEGATIVE (NEGATIVE); PROTEIN,URINE NEGATIVE (NEGATIVE); UROBILINOGEN,URINE 0.2 (NORMAL) E.U./dL (NORMAL)
[2019-06-23 05:41] LABS: CLARITY,URINE CLEAR (CLEAR)
[2019-06-23 06:06] VITALS: BP 144/75
== END 2019-06-23 06:06 | disposition home or self-care (01) ==
LOC: EDUNIT# → ED 03:20
DX: G89.18 Other acute postprocedural pain (principal); Z96.651 Presence of right artificial knee joint; M19.90 Unspecified osteoarthritis, unspecified site; K21.9 Gastro-esophageal reflux disease without esophagitis; Z85.3 Personal history of malignant neoplasm of breast
CPT/HCPCS: 36415; 80053; 81001; 81003; 83605; 83690; 85025; 85651; 87040; 87086; 96374; 96375; 99284

== ENCOUNTER 2019-09-18 11:06 | Outpatient (CLI) | payer MEDICARE, BC ==
--- NOTE | 2019-09-19 08:40 | DEXA Report ---
Reason: OSTEOPOROSIS Procedure Date: 09/18/2019 Accession Number: [id number] / [id number] Procedure: DEX - Dexa Spine and/or Hip CPT Code: Final Report FULL RESULT: EXAM: Dexa Spine and/or Hip DATE: 09/18/2019 11:59 AM CLINICAL HISTORY: POSTMENOPAUSAL. TECHNIQUE: Dual energy x-ray absorptiometry (DXA) was performed on a [employer] System. Regions measured are the AP Spine, femoral neck, and if needed forearm. COMPARISON: None. In accordance with the International Society for Clinical Densitometry (ISCD) guidelines, data from previous exams may be reanalyzed using current recommendations and techniques. This is done to allow a more accurate basis for comparison with the current study. FINDINGS: The data for the lumbar spine is as follows: BMD (g/cm/cm) T-SCORE Z-SCORE REGION L1 0.914 -1.8 -0.3 L2 1.018 -1.5 0.0 L3 1.420 1.8 3.3 L4 1.325 1.0 2.5 TOTAL 1.187 0.1 1.6 NOTE: All evaluable vertebrae are used for classification The data for the hip is as follows: BMD (g/cm/cm) T-SCORE Z-SCORE REGION Neck 0.811 -1.6 0.2 TOTAL 0.825 -1.4 0.1 NOTE: The femoral neck or total proximal femur, whichever is lowest, is used for classification. IMPRESSION: THE WHO CLASSIFICATION BASED ON THE INTERNATIONAL REFERENCE STANDARD IS OSTEOPENIA. THE FRACTURE RISK IS INCREASED. RECOMMENDATION: Patients with diagnosis of osteoporosis or osteopenia should have regular bone mineral density assessment. For those eligible for Medicare, routine testing is allowed once every 2 years. Testing frequency can be increased for patients who have rapidly progressing disease or for those who are receiving medical therapy to restore bone mass. COMMENT: World Health Organization (WHO) definitions for osteoporosis and osteopenia: NORMAL BMD: T-score at -1.0 or higher, fracture risk is low OSTEOPENIA BMD: T-score between -1.0 and -2.5, fracture risk is increased. OSTEOPOROSIS BMD: T-score at -2.5 or lower, fracture risk is high. National Osteoporosis Foundation recommends: 1. Obtain adequate dietary calcium (at least 1200 mg per day) and vitamin D (400-800 international units per day). 2. Participate, as appropriate, in regular weightbearing and muscle-strengthening exercise. 3. Avoid tobacco use and reduce alcohol and caffeine intake. 4. For more detailed information see the website at www.NOF.org.
== END 2019-09-18 11:07 | disposition home or self-care (01) ==
LOC: DI 11:06
PROVIDERS: ATTEND Physician Assistant Medical
DX: Z13.820 Encounter for screening for osteoporosis (principal); M85.88 Other specified disorders of bone density and structure, other site; Z78.0 Asymptomatic menopausal state
CPT/HCPCS: 77080

== ENCOUNTER 2020-09-25 07:32 | Outpatient (CLI) | payer MEDICARE, BC ==
--- NOTE | 2020-09-25 09:10 | XRAY Report ---
PROCEDURE: Shoulder 2 View RT INDICATIONS: RIGHT ARM PAIN TECHNIQUE: 2 views of the shoulder were acquired. COMPARISON: None. FINDINGS: Bones: No acute fractures or dislocations. 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 There are degenerative changes of the acr omioclavicular joint. No suspicious bony lesions. Visualized ribs appear intact. Soft tissues: No suspicious soft tissue calcifications. Round metallic device projects over the low er right chest likely representing tissue tire spotter for breast reconstruction. IMPRESSION: Right shoulder without acute radiographic abnormalities. Findings consistent with calcif ic tendinitis as well as degenerative changes of the acromioclavicular joint. Reviewed by: Forrest Marcus MD on 09/25/2020 8:09 AM RODNEY Approved by: Forrest Marcus MD on 09/25/2020 8:09 AM RODNEY Station ID: [id number]
== END 2020-09-25 07:33 | disposition home or self-care (01) ==
LOC: DI.WCP 07:32
PROVIDERS: ATTEND Physician Assistant Medical
DX: M79.601 Pain in right arm (principal)

== ENCOUNTER 2020-09-28 08:00 | Outpatient (CLI) | payer MEDICARE, BC ==
[2020-09-28 13:24] LABS: BASOPHILS % (AUTO) 0.8 %; EOSINOPHILS # (AUTO) 0.1 10^3/uL (0.0-0.7); EOSINOPHILS % (AUTO) 2.4 %; HGB - HEMOGLOBIN 15.5 g/dL (12.0-16.0); LYMPHOCYTES # (AUTO) 1.4 10^3/uL (1.5-3.5); MEAN CORPUSCULAR HEMOGLOBIN 31.7 pg (27.0-31.0); MEAN CORPUSCULAR HGB CONC 33.6 g/dL (32.0-36.0); MEAN CORPUSCULAR VOLUME 94.3 fL (81.0-99.0); MEAN PLATELET VOLUME 11.4 fL (7.9-10.8); MONOCYTES # (AUTO) 0.3 10^3/uL (0.0-1.0); MONOCYTES % (AUTO) 8.9 %; NEUTROPHILS # (AUTO) 1.9 10^3/uL (1.5-6.6); NEUTROPHILS % (AUTO) 50.6 %; PLT - PLATELET COUNT 127 10^3/uL (130-450); RED BLOOD COUNT 4.89 10^6/uL (4.20-5.40); RED CELL DISTRIBUTION WIDTH 12.7 % (12.0-15.0); WHITE BLOOD COUNT 3.7 x10^3/uL (4.8-10.8)
[2020-09-28 13:44] LABS: ALBUMIN 4.2 g/dL (3.2-5.5); ALBUMIN/GLOBULIN RATIO 1.6 (1.0-2.2); ALKALINE PHOSPHATASE 81 IU/L (42-121); ALT ALANINE AMINOTRANSFERASE 19 IU/L (10-60); AST ASPARTATE AMINOTRANSFERASE 21 IU/L (10-42); BILIRUBIN,TOTAL 0.7 mg/dL (0.2-1.0); BUN - BLOOD UREA NITROGEN 23 mg/dL (6-20); CALCIUM 9.6 mg/dL (8.5-10.3); CARBON DIOXIDE - CO2 27 mmol/L (21-32); CHLORIDE 104 mmol/L (101-111); CHOL/HDL RATIO 3.5 (<4.4); CHOLESTEROL 248 mg/dL; GLUCOSE 106 mg/dL (70-100); HDL CHOLESTEROL 71 mg/dL; LDL CHOLESTEROL,CALCULATED 146 mg/dL; LDL/HDL RATIO 2.1 (<4.4); TOTAL PROTEIN 6.9 g/dL (6.7-8.2); VLDL CHOLESTEROL 31 mg/dL
== END 2020-09-28 23:59 | disposition home or self-care (01) ==
LOC: LAB.WCP 08:00
PROVIDERS: ATTEND Physician Assistant Medical
DX: E78.5 Hyperlipidemia, unspecified (principal); D69.6 Thrombocytopenia, unspecified
CPT/HCPCS: 36415; 80053; 80061; 83721; 85025

== ENCOUNTER 2021-01-01 09:49 | Outpatient (CLI) | payer MEDICARE, BC ==
--- NOTE | 2021-01-01 14:30 | XRAY Report ---
PROCEDURE: Foot 2 View LT INDICATIONS: LEFT FOOT PAIN TECHNIQUE: 2 views of the foot were acquired. COMPARISON: None FINDINGS: Bones: There is a mildly displaced fracture through the midportion of the fifth proximal phalanx. No suspicious bony lesions. Soft tissues: No tibiotalar joint effusion. Achilles tendon appears normal. Soft tissue edema is p resent adjacent to the fifth digit. IMPRESSION: Mildly displaced mid fifth proximal phalanx fracture with adjacent edema. Reviewed by: Vianey House MD on 01/01/2021 2:29 PM PDT Approved by: Vianey House MD on 01/01/2021 2:29 PM PDT Station ID: [id number]
== END 2021-01-01 23:59 | disposition home or self-care (01) ==
LOC: DI.N 09:49
PROVIDERS: ATTEND Nurse Practitioner
DX: S92.512A Displaced fracture of proximal phalanx of left lesser toe(s), initial encounter for closed fracture (principal)

== ENCOUNTER 2021-06-26 19:00 | Emergency (ER) | payer MEDICARE, BC ==
[2021-06-26 19:10] VITALS: BP 158/76
--- NOTE | 2021-06-26 19:34 | ED Physician Documentation ---
PD HPI OPHTHO - Stated complaint Stated Complaint: CHEMICAL IN RT EYE - Chief complaint Chief Complaint: Heent - History obtained from History obtained from: Patient - Additional information Additional information: She dropped a can of sterno and it splashed in her eye with pain. She has irrigated it but still painful. 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 HEENT: None Psych: None Musculoskeletal: Osteoarthritis Derm: None - Past Surgical History Past Surgical History: Yes Ortho: Knee replacement, Arthroscopic surgery /COMMUNITY DEVELOPMENT DIRECTOR: Hysterectomy, Mastectomy - Present Medications Home Medications: Ambulatory Orders Medication Instructions Recorded Confirmed traZODone [Desyrel] 50 mg PO HS 04/08/15 06/26/21 Krill/Om-3/Dha/Epa/Phospho/Ast 1 cap PO DAILY 06/26/21 06/26/21 [Antarctic Krill Oil 500 mg] Nitroglycerin [Nitrostat] 0.4 mg SL Q5MIN PRN 06/26/21 06/26/21 Omeprazole 40 mg PO DAILY 06/26/21 06/26/21 Vitc/E/Zinc/Copper/Lutein/Zeax 1 tab PO DAILY 06/26/21 06/26/21 [Icaps Areds2 Tablet] - Allergies Allergies/Adverse Reactions: Allergies Allergy/AdvReac Type Severity Reaction Status Date / Time hydrocodone bitartrate * AdvReac Intermediate "completely Verified 06/26/21 19:10 [From Vicodin] out of it after only one" oxycodone AdvReac Hallucinati Verified 06/26/21 19:10 ons - Social History Does the pt smoke?: No Smoking Status: Never smoker Does the pt drink ETOH?: No Does the pt have substance abuse?: No - Immunizations Immunizations are current?: Yes Immunizations: TDAP current <10years - POLST Patient has POLST: No PD ED PE NORMAL - Vitals Vital signs reviewed: Yes - General General: Alert and oriented X 3, No acute distress - HEENT HEENT: PERRL, EOMI, Other (Pain-free after proparacaine, no fluorescein uptake. The cornea is clear. The conjunctiva is red.) - Neuro Neuro: Alert and oriented X 3, Normal speech Results - Vitals Vitals: Vital Signs - 24 hr 06/26/21 19:07 Temperature 36.5 C Heart Rate 63 Respiratory 18 Rate Blood Pressure 158/76 H O2 Saturation 97 Oxygen O2 Source Room air PD MEDICAL DECISION MAKING - ED course ED course: After discussion of risks and benefits she was given a 1-10 dilution of proparacaine and she understands that she can use it no more than 24 hours. Departure - Departure Disposition: 01 Home, Self Care Clinical Impression: Chemical exposure of eye Condition: Good Record reviewed to determine appropriate education?: Yes Instructions: ED Chemical Conjunctivitis Follow-Up: Yoel Wlash MD [Provider Admit Priv/Credential] - Comments: Follow-up with the library technology instructor on Monday if not better, that said I suspect you will be completely better within 24 hours. You may use the 1-10 dilution of proparacaine as needed from no more than 24 hours as needed for your symptoms.
== END 2021-06-26 19:51 | disposition home or self-care (01) ==
LOC: ED 19:00
DX: T15.91XA Foreign body on external eye, part unspecified, right eye, initial encounter (principal); X58.XXXA Exposure to other specified factors, initial encounter; Y93.89 Activity, other specified
CPT/HCPCS: 99281; 99283

== ENCOUNTER 2021-08-26 08:00 | Outpatient (CLI) | payer MEDICARE, BC | END 2021-08-26 23:59 | LOC: LAB.N 08:00 | PROVIDERS: ATTEND Nurse Practitioner | DX: R53.81 Other malaise (principal); R53.83 Other fatigue; Z20.822 Contact with and (suspected) exposure to COVID-19 ==

== ENCOUNTER 2021-08-26 12:16 | Emergency (ER) | payer MEDICARE, BC ==
[2021-08-26 12:32] VITALS: BP 127/60
[2021-08-26] MEDS ORDERED: PSEUDOEPHEDRINE 30 MG TABLET PO STA (12:58)
[2021-08-26] MEDS ORDERED: CETIRIZINE 10 MG TABLET PO STA (12:58)
[2021-08-26] MEDS ORDERED: BENZONATATE 100 MG CAPSULE PO STA (12:58)
--- NOTE | 2021-08-26 13:04 | ED Physician Documentation ---
History of Present Illness - Stated complaint Stated Complaint: FEVER/BODY ACHE - Chief complaint Chief Complaint: Fever - History obtained from History obtained from: Patient - History of Present Illness Timing: How many days ago (10) Pain level max: 0 Pain level now: 0 - Additonal information Additional information: 76 year old female with a cough, bodyaches for the past 10 days. Rhinorrhea, congestion. Nothing makes it better or worse. No difficulty breathing. Seen at the walk in clinic today and sent here. Patient states that their "computers were down so they told me to come here". States took nyquil without relief. Has had 2 [employer] covInvolvio vaccinations. Review of Systems Ten Systems: 10 systems reviewed and negative Constitutional: reports: Fever (100.2 at home). 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 HEENT: None Psych: None Musculoskeletal: Osteoarthritis Derm: None - Past Surgical History Past Surgical History: Yes Ortho: Knee replacement, Arthroscopic surgery /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 MAINTENANCE: Hysterectomy, Mastectomy - Present Medications Home Medications: Ambulatory Orders Medication Instructions Recorded Confirmed traZODone [Desyrel] 50 mg PO HS 04/08/15 06/26/21 Krill/Om-3/Dha/Epa/Phospho/Ast 1 cap PO DAILY 06/26/21 06/26/21 [Antarctic Krill Oil 500 mg] Nitroglycerin [Nitrostat] 0.4 mg SL Q5MIN PRN 06/26/21 06/26/21 Omeprazole 40 mg PO DAILY 06/26/21 06/26/21 Vitc/E/Zinc/Copper/Lutein/Zeax 1 tab PO DAILY 06/26/21 06/26/21 [Icaps Areds2 Tablet] Benzonatate [Tessalon] 200 mg PO TID PRN #30 cap 08/26/21 Cetirizine HCl/Pseudoephedrine 1 each PO BID PRN #30 ea 08/26/21 [Zyrtec-D Tablet] - Allergies Allergies/Adverse Reactions: Allergies Allergy/AdvReac Type Severity Reaction Status Date / Time hydrocodone bitartrate * AdvReac Intermediate "completely Verified 08/26/21 12:32 [From Vicodin] out of it after only one" oxycodone AdvReac Hallucinati Verified 08/26/21 12:32 ons - Social History Does the pt smoke?: No Smoking Status: Never smoker Does the pt drink ETOH?: No Does the pt have substance abuse?: No - Immunizations Immunizations are current?: Yes Immunizations: TDAP current <10years - POLST Patient has POLST: No PD ED PE NORMAL - Vitals Vital signs reviewed: Yes - General General: Alert and oriented X 3, No acute distress - HEENT HEENT: Ears normal, Moist mucous membranes, Pharynx benign - Neck Neck: Supple, no meningeal sign - Cardiac Cardiac: RRR, Strong equal pulses - Respiratory Respiratory: No respiratory distress, Clear bilaterally - Abdomen Abdomen: Soft, Non tender, Non distended - Derm Derm: Warm and dry, No rash - Extremities Extremities: No edema - Neuro Neuro: Alert and oriented X 3 - Psych Psych: Normal mood, Normal affect Results - Vitals Vitals: Vital Signs - 24 hr 08/26/21 12:27 Temperature 37.2 C Heart Rate 75 Respiratory 14 Rate Blood Pressure 127/60 O2 Saturation 96 Oxygen O2 Source Room air - Rads (name of study) cxr Radiology: Final report received, EMP read contemporaneously, See rad report (no acute disease) PD MEDICAL DECISION MAKING - ED course Complexity details: reviewed results, re-evaluated patient, considered differential, d/w patient ED course: Patient is a 76-year-old female with what appears to be a viral upper respiratory infection. She is well-appearing, nontoxic. Afebrile. No hypoxia. No respiratory distress. Normal chest x-ray. We will continue supportive care and have her follow-up with her doctor for further care. No evidence of pneumonia, sepsis. Patient counseled regarding signs and symptoms for which I believe and urgent re-evaluation would be necessary. Patient with good understanding of and agreement to plan and is comfortable going home at this time This document was made in part using voice recognition software. While efforts are made to proofread this document, sound alike and grammatical errors may occur. Departure - Departure Disposition: 01 Home, Self Care Clinical Impression: Viral URI Condition: Good Instructions: ED Viral Syndrome Follow-Up: Melissa Corona PA-C [Primary Care Provider] - Within 1 week Prescriptions: Benzonatate [Tessalon] 200 mg PO TID PRN #30 cap PRN Reason: Cough Cetirizine HCl/Pseudoephedrine [Zyrtec-D Tablet] 1 each PO BID PRN #30 ea PRN Reason: nasal congestion Comments: Please use the medications as prescribed. return if you worsen. Follow up with your doctor for further care. Prescriptions were sent to [facility] in [place]. You have a Covid test pending. You need to self quarantine until the result is done and negative. The results should be done in 24-48 hours. We will call with a positive result, the fastest way to get a negative result for confirmation though is to go to the hospital website at [email or web address], click on the [facility] [employer] tab and sign up for the patient portal. If any of your friends and/or family need to be tested, they can call the hospital at [phone] for an appointment to have their Covid test.
--- NOTE | 2021-08-26 14:01 | XRAY Report ---
PROCEDURE: Chest 2 View X-Ray INDICATIONS: cough, fever TECHNIQUE: 2 view(s) of the chest. COMPARISON: CXR 05/11/2019. Lung bases on CT abdomen and pelvis 11/16/2015. FINDINGS: Surgical changes and devices: Right breast implants. Lungs and pleura: No pleural effusions or pneumothorax. Lungs are clear. Mediastinum: Mediastinal contours are unchanged. Heart size is normal. Bones and chest wall: No suspicious bony abnormalities. Soft tissues appear unremarkable. IMPRESSION: No acute cardiopulmonary abnormality. Reviewed by: Bennett Rolle MD on 08/26/2021 1:59 PM [facility] Approved by: Bennett Rolle MD on 08/26/2021 1:59 PM [facility] Station ID: [id number]
== END 2021-08-26 14:13 | disposition home or self-care (01) ==
LOC: ED 12:16
DX: J06.9 Acute upper respiratory infection, unspecified (principal); R53.81 Other malaise; R53.83 Other fatigue; Z20.822 Contact with and (suspected) exposure to COVID-19
CPT/HCPCS: 71046; 99283; A9270; U0004

== ENCOUNTER 2021-09-27 09:06 | Emergency (ER) | payer MEDICARE, BC ==
[2021-09-27] MEDS ORDERED: SODIUM CHLORIDE 0.9% 1,000 ML IV STA (09:33)
[2021-09-27] MEDS ORDERED: ONDANSETRON 4 MG/2 ML VIAL IVP STA (09:33)
--- NOTE | 2021-09-27 09:36 | ED Physician Documentation ---
PD HPI NVD - Stated complaint Stated Complaint: N/V/D - Chief complaint Chief Complaint: Abd Pain - History obtained from History obtained from: Patient - History of Present Illness Timing - onset: Enter time (299), Today Timing - duration: Hours Timing - details: Abrupt onset, Still present Associated symptoms: Abdominal pain Contributing factors: Bad food Improved by: Vomiting, BM Worsened by: Eating (mushrooms) Similar symptoms before: Diagnosis (food sensitivity) Recently seen: Not recently seen - Additonal information Additional information: Previously well 76-year-old female has some food sensitivities and she had some pizza last night and did not think about eating it it had mushrooms on it she knows that she is sensitive to mushrooms at about 3:00 in the morning she developed abdominal cramping nausea vomiting and diarrhea. She has had the these measures miserable symptoms since and comes to the emergency department this morning for some treatment.She reports that prior to this she was not ill in any way Review of Systems Constitutional: denies: Fever, Chills, Myalgias Eyes: denies: Decreased vision Ears: denies: Ear pain Nose: denies: Congestion Throat: denies: Sore throat Cardiac: denies: Chest pain / pressure, Palpitations Respiratory: denies: Dyspnea, Cough GI: reports: Abdominal Pain, Nausea, Vomiting, Diarrhea : denies: Dysuria, Frequency Skin: denies: Rash Musculoskeletal: denies: Neck pain, Back pain, Extremity pain Neurologic: denies: Generalized weakness, Focal weakness, Numbness PD PAST MEDICAL HISTORY - Past Medical History Cardiovascular: None Respiratory: None Neuro: None Endocrine/Autoimmune: None GI: GERD, 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 : 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 HEENT: None Psych: None Musculoskeletal: Osteoarthritis Derm: None - Past Surgical History Past Surgical History: Yes Ortho: Knee replacement, Arthroscopic surgery /COMPRESSOR ASSEMBLER: Hysterectomy, Mastectomy - Present Medications Home Medications: Ambulatory Orders Medication Instructions Recorded Confirmed traZODone [Desyrel] 50 mg PO HS 04/08/15 06/26/21 Krill/Om-3/Dha/Epa/Phospho/Ast 1 cap PO DAILY 06/26/21 06/26/21 [Antarctic Krill Oil 500 mg] Nitroglycerin [Nitrostat] 0.4 mg SL Q5MIN PRN 06/26/21 06/26/21 Omeprazole 40 mg PO DAILY 06/26/21 06/26/21 Vitc/E/Zinc/Copper/Lutein/Zeax 1 tab PO DAILY 06/26/21 06/26/21 [Icaps Areds2 Tablet] Benzonatate [Tessalon] 200 mg PO TID PRN #30 cap 08/26/21 Cetirizine HCl/Pseudoephedrine 1 each PO BID PRN #30 ea 08/26/21 [Zyrtec-D Tablet] Ondansetron Odt [Zofran] 4 mg TL Q6H PRN #10 tablet 09/27/21 - Allergies Allergies/Adverse Reactions: Allergies Allergy/AdvReac Type Severity Reaction Status Date / Time hydrocodone bitartrate * AdvReac Intermediate "completely Verified 09/27/21 09:15 [From Vicodin] out of it after only one" oxycodone AdvReac Hallucinati Verified 09/27/21 09:15 ons - Social History Does the pt smoke?: No Smoking Status: Never smoker Does the pt drink ETOH?: No Does the pt have substance abuse?: No - Immunizations Immunizations are current?: Yes Immunizations: TDAP current <10years - POLST Patient has POLST: No PD ED PE NORMAL - Vitals Vital signs reviewed: Yes (tachy and with wide pulse pressure) - General General: Alert and oriented X 3, No acute distress, Well developed/nourished - HEENT HEENT: Atraumatic, PERRL, EOMI - Neck Neck: Supple, no meningeal sign, No bony TTP - Cardiac Cardiac: RRR, No murmur - Respiratory Respiratory: No respiratory distress, Clear bilaterally - Abdomen Abdomen: Normal bowel sounds, Soft, Non distended, No organomegaly, Other (epigastric tenderness is not reproducible ) - Back Back: No CVA TTP, No spinal TTP - Derm Derm: Normal color, Warm and dry, No rash - Extremities Extremities: No deformity, No edema - Neuro Neuro: Alert and oriented X 3, nurse head 2-12 intact, No motor deficit, No sensory deficit, Normal speech Eye Opening: Spontaneous Motor: Obeys Commands Verbal: Oriented GCS Score: 15 - Psych Psych: Normal mood, Normal affect Results - Vitals Vitals: Vital Signs - 24 hr 01/17/22 01/17/22 01/17/22 09:10 11:14 12:35 Temperature 36.1 C L 36.5 C Heart Rate 101 H 58 L 60 Respiratory 20 19 16 Rate Blood Pressure 116/55 L 119/46 L 120/60 O2 Saturation 99 100 100 Oxygen O2 Source Room air - Labs Labs: Laboratory Tests 09/27/21 09/27/21 09/27/21 09:49 09:49 09:49 WBC 7.6 RBC 4.94 Hgb 15.4 Hct 45.7 MCV 92.5 MCH 31.2 H MCHC 33.7 RDW 12.8 Plt Count 136 MPV 10.1 Neut # (Auto) 6.8 H Lymph # (Auto) 0.3 L Hyde # (Auto) 0.4 Eos # (Auto) 0.1 Baso # (Auto) 0.0 Absolute Nucleated RBC 0.00 Nucleated RBC % 0.0 Sodium 138 Potassium 4.2 Chloride 104 Carbon Dioxide 25 Anion Gap 9.0 BUN 24 H Creatinine 0.8 Estimated GFR (MDRD) 69 L Glucose 108 H Lactic Acid 0.8 Calcium 8.8 Total Bilirubin 0.6 AST 21 ALT 17 Alkaline Phosphatase 76 Total Protein 6.5 L Albumin 4.1 Globulin 2.4 Albumin/Globulin Ratio 1.7 Lipase 47 Urine Color Urine Clarity Urine pH Ur Specific [place] Urine Protein Urine Glucose (UA) Urine Ketones Urine Occult Blood Urine Nitrite Urine Bilirubin Urine Urobilinogen Ur Leukocyte Esterase Ur Microscopic Review Urine Culture Comments 09/27/21 10:36 WBC RBC Hgb Hct MCV MCH MCHC RDW Plt Count MPV Neut # (Auto) Lymph # (Auto) Hyde # (Auto) Eos # (Auto) Baso # (Auto) Absolute Nucleated RBC Nucleated RBC % Sodium Potassium Chloride Carbon Dioxide Anion Gap BUN Creatinine Estimated GFR (MDRD) Glucose Lactic Acid Calcium Total Bilirubin AST ALT Alkaline Phosphatase Total Protein Albumin Globulin Albumin/Globulin Ratio Lipase Urine Color YELLOW Urine Clarity CLEAR Urine pH 6.0 Ur Specific [place] 1.020 Urine Protein NEGATIVE Urine Glucose (UA) NEGATIVE Urine Ketones NEGATIVE Urine Occult Blood NEGATIVE Urine Nitrite NEGATIVE Urine Bilirubin NEGATIVE Urine Urobilinogen 0.2 (NORMAL) Ur Leukocyte Esterase NEGATIVE Ur Microscopic Review NOT INDICATED Urine Culture Comments NOT INDICATED Procedures - Bedside sono Bedside sono by EMP: With use of bedside ultrasound the right upper quadrant is imaged the gallbladder appears distended there is no thickening of the gallbladder wall pericholecystic fluid or obvious stones. The gallbladder on exam today is sonographically nontender. - IVC sono (time) 0930 Bedside IVC sono: IVC measures (cm) (1.32), Dehydration (est <1 liter deficit) PD MEDICAL DECISION MAKING - ED course Complexity details: reviewed results, re-evaluated patient, considered differential, d/w patient ED course: 76 y/o female with abdominal pain vomiting and diarrhea after eating mushrooms is found to be dehydrated and she is administered IV saline. She feels improved and she is discharged to home. Departure - Departure Disposition: , Self Care Clinical Impression: Gastroenteritis Condition: Stable Instructions: ED Gastroenteritis Non Infec Follow-Up: Melissa Corona PA-C [Primary Care Provider] - Prescriptions: Ondansetron Odt [Zofran] 4 mg TL Q6H PRN #10 tablet PRN Reason: Nausea / Vomiting Comments: Marilu, today it looks like you have some irritation to your digestive tract by some food you have eaten and I have E scribed some Zofran for nausea to [facility] in [place]. Our expectation is that you will have this resolution in the next day. Discharge Date/Time: 09/27/21 12:35
[2021-09-27 09:59] LABS: BASOPHILS % (AUTO) 0.3 %; EOSINOPHILS # (AUTO) 0.1 10^3/uL (0.0-0.7); EOSINOPHILS % (AUTO) 0.8 %; HCT - HEMATOCRIT 45.7 % (37.0-47.0); HGB - HEMOGLOBIN 15.4 g/dL (12.0-16.0); LYMPHOCYTES # (AUTO) 0.3 10^3/uL (1.5-3.5); LYMPHOCYTES % (AUTO) 3.7 %; MEAN CORPUSCULAR HEMOGLOBIN 31.2 pg (27.0-31.0); MEAN CORPUSCULAR HGB CONC 33.7 g/dL (32.0-36.0); MEAN CORPUSCULAR VOLUME 92.5 fL (81.0-99.0); MEAN PLATELET VOLUME 10.1 fL (7.9-10.8); MONOCYTES # (AUTO) 0.4 10^3/uL (0.0-1.0); MONOCYTES % (AUTO) 5.7 %; NEUTROPHILS # (AUTO) 6.8 10^3/uL (1.5-6.6); NEUTROPHILS % (AUTO) 89.2 %; PLT - PLATELET COUNT 136 10^3/uL (130-450); RED BLOOD COUNT 4.94 10^6/uL (4.20-5.40); RED CELL DISTRIBUTION WIDTH 12.8 % (12.0-15.0); WHITE BLOOD COUNT 7.6 x10^3/uL (4.8-10.8)
[2021-09-27 10:08] LABS: ALBUMIN 4.1 g/dL (3.2-5.5); ALBUMIN/GLOBULIN RATIO 1.7 (1.0-2.2); BILIRUBIN,TOTAL 0.6 mg/dL (0.2-1.0); CALCIUM 8.8 mg/dL (8.5-10.3); CREATININE 0.8 mg/dL (0.4-1.0); POTASSIUM 4.2 mmol/L (3.5-5.0); TOTAL PROTEIN 6.5 g/dL (6.7-8.2)
[2021-09-27 10:48] LABS: BILIRUBIN,URINE NEGATIVE (NEGATIVE); GLUCOSE, URINE (UA) NEGATIVE (NEGATIVE); KETONES,URINE (UA) NEGATIVE (NEGATIVE); LEUKOCYTE ESTERASE, URINE NEGATIVE (NEGATIVE); NITRITE,URINE NEGATIVE (NEGATIVE); OCCULT BLOOD,URINE NEGATIVE (NEGATIVE); PROTEIN,URINE NEGATIVE (NEGATIVE); UROBILINOGEN,URINE 0.2 (NORMAL) E.U./dL (NORMAL)
[2021-09-27 10:49] LABS: CLARITY,URINE CLEAR (CLEAR)
[2021-09-27 12:37] VITALS: BP 120/60
== END 2021-09-27 12:35 | disposition home or self-care (01) ==
LOC: ED 09:06
DX: K52.9 Noninfective gastroenteritis and colitis, unspecified (principal)
CPT/HCPCS: 36415; 80053; 81001; 81003; 83605; 83690; 85025; 87086; 96374; 99284

== ENCOUNTER 2021-10-05 08:00 | Outpatient (CLI) | payer MEDICARE, BC ==
[2021-10-05 12:25] LABS: BASOPHILS % (AUTO) 0.5 %; EOSINOPHILS # (AUTO) 0.1 10^3/uL (0.0-0.7); EOSINOPHILS % (AUTO) 2.3 %; HGB - HEMOGLOBIN 13.9 g/dL (12.0-16.0); LYMPHOCYTES # (AUTO) 1.8 10^3/uL (1.5-3.5); LYMPHOCYTES % (AUTO) 39.7 %; MEAN CORPUSCULAR HEMOGLOBIN 29.9 pg (27.0-31.0); MEAN CORPUSCULAR HGB CONC 32.3 g/dL (32.0-36.0); MEAN CORPUSCULAR VOLUME 92.5 fL (81.0-99.0); MONOCYTES # (AUTO) 0.4 10^3/uL (0.0-1.0); MONOCYTES % (AUTO) 9.3 %; NEUTROPHILS # (AUTO) 2.1 10^3/uL (1.5-6.6); NEUTROPHILS % (AUTO) 47.7 %; PLT - PLATELET COUNT 142 10^3/uL (130-450); RED BLOOD COUNT 4.65 10^6/uL (4.20-5.40); RED CELL DISTRIBUTION WIDTH 12.6 % (12.0-15.0); WHITE BLOOD COUNT 4.4 x10^3/uL (4.8-10.8)
[2021-10-05 13:58] LABS: ALBUMIN 3.7 g/dL (3.2-5.5); ALBUMIN/GLOBULIN RATIO 1.4 (1.0-2.2); ALKALINE PHOSPHATASE 68 IU/L (42-121); ALT ALANINE AMINOTRANSFERASE 21 IU/L (10-60); AST ASPARTATE AMINOTRANSFERASE 17 IU/L (10-42); BILIRUBIN,TOTAL 0.5 mg/dL (0.2-1.0); BUN - BLOOD UREA NITROGEN 18 mg/dL (6-20); CARBON DIOXIDE - CO2 29 mmol/L (21-32); CHLORIDE 103 mmol/L (101-111); CHOL/HDL RATIO 4.1 (<4.4); CHOLESTEROL 214 mg/dL; GFR - MDRD 54 (>89); GLUCOSE 103 mg/dL (70-100); HDL CHOLESTEROL 52 mg/dL; LDL CHOLESTEROL,CALCULATED 140 mg/dL; LDL/HDL RATIO 2.7 (<4.4); SODIUM 139 mmol/L (135-145); TOTAL PROTEIN 6.3 g/dL (6.7-8.2); TRIGLYCERIDES 109 mg/dL; VLDL CHOLESTEROL 22 mg/dL
== END 2021-10-05 23:59 | disposition home or self-care (01) ==
LOC: LAB.WCP 08:00
PROVIDERS: ATTEND Physician Assistant Medical
DX: E78.5 Hyperlipidemia, unspecified (principal); R73.9 Hyperglycemia, unspecified; D69.6 Thrombocytopenia, unspecified
CPT/HCPCS: 36415; 80053; 80061; 83721; 85025

== ENCOUNTER 2022-07-18 17:14 | Outpatient (CLI) | payer MEDICARE, BC | END 2022-07-18 17:15 | disposition short-term general hospital (02) | LOC: EMS 17:14 | DX: R41.0 Disorientation, unspecified (principal); R51.9 Headache, unspecified; M79.621 Pain in right upper arm; V43.53XA Car driver injured in collision with pick-up truck in traffic accident, initial encounter; Y92.413 State road as the place of occurrence of the external cause | CPT/HCPCS: A0425; A0427 ==

== ENCOUNTER 2022-07-20 08:00 | Outpatient (CLI) | payer MEDICARE, BC ==
--- NOTE | 2022-07-20 20:58 | XRAY Report ---
PROCEDURE: Scapula 2 View RT INDICATIONS: R SHOULDER PX TECHNIQUE: 2 views of the scapula were acquired. COMPARISON: None FINDINGS: Bones: No fractures or dislocations. Moderate acromioclavicular joint osteoarthritic changes are see n with joint space narrowing, subchondral sclerosis and marginal osteophyte formation. No suspicious bony lesions. Visualized ribs appear intact. Soft tissues: Overlying soft tissues appear normal. IMPRESSION: No gross acute scapular fracture. Moderate acromioclavicular joint osteoarthritis. No shoulder joint dislocation. Reviewed by: Richard Huston MD on 07/20/2022 8:57 PM PST Approved by: Richard Huston MD on 07/20/2022 8:57 PM PST Station ID: [id number]
== END 2022-07-20 23:59 | disposition home or self-care (01) ==
LOC: DI.N 08:00
PROVIDERS: ATTEND Family Medicine
DX: M19.011 Primary osteoarthritis, right shoulder (principal)

== ENCOUNTER 2022-08-09 08:40 | Emergency (ER) | payer MEDICARE, BC ==
[2022-08-09 09:19] LABS: BASOPHILS % (AUTO) 0.7 %; EOSINOPHILS # (AUTO) 0.1 10^3/uL (0.0-0.7); EOSINOPHILS % (AUTO) 1.8 %; HCT - HEMATOCRIT 46.4 % (37.0-47.0); HGB - HEMOGLOBIN 15.3 g/dL (12.0-16.0); LYMPHOCYTES # (AUTO) 1.1 10^3/uL (1.5-3.5); LYMPHOCYTES % (AUTO) 23.5 %; MEAN CORPUSCULAR HEMOGLOBIN 30.7 pg (27.0-31.0); MEAN PLATELET VOLUME 9.5 fL (7.9-10.8); MONOCYTES # (AUTO) 0.5 10^3/uL (0.0-1.0); MONOCYTES % (AUTO) 11.2 %; NEUTROPHILS # (AUTO) 2.8 10^3/uL (1.5-6.6); NEUTROPHILS % (AUTO) 62.6 %; PLT - PLATELET COUNT 212 10^3/uL (130-450); RED BLOOD COUNT 4.99 10^6/uL (4.20-5.40); RED CELL DISTRIBUTION WIDTH 13.1 % (12.0-15.0); WHITE BLOOD COUNT 4.5 x10^3/uL (4.8-10.8)
[2022-08-09 09:48] LABS: ALBUMIN/GLOBULIN RATIO 1.4 (1.0-2.2); BILIRUBIN,TOTAL 0.7 mg/dL (0.2-1.0); CALCIUM 9.4 mg/dL (8.5-10.3); CREATININE 0.8 mg/dL (0.4-1.0); POTASSIUM 3.8 mmol/L (3.5-5.0); TOTAL PROTEIN 6.8 g/dL (6.7-8.2)
[2022-08-09] MEDS ORDERED: SODIUM CHLORIDE 0.9% 1,000 ML IV STA (10:32)
[2022-08-09 11:45] LABS: BILIRUBIN,URINE NEGATIVE (NEGATIVE); GLUCOSE, URINE (UA) NEGATIVE (NEGATIVE); KETONES,URINE (UA) NEGATIVE (NEGATIVE); LEUKOCYTE ESTERASE, URINE NEGATIVE (NEGATIVE); NITRITE,URINE NEGATIVE (NEGATIVE); OCCULT BLOOD,URINE NEGATIVE (NEGATIVE); PROTEIN,URINE NEGATIVE (NEGATIVE); UROBILINOGEN,URINE 0.2 (NORMAL) E.U./dL (NORMAL)
[2022-08-09 11:49] LABS: CLARITY,URINE CLEAR (CLEAR)
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
[2022-08-09 12:32] LABS: B. PARAPERTUSSIS- RESP PCR PAN NOT DETECTED; B. PERTUSSIS- RESP PCR PANEL NOT DETECTED; C. PNEUMONIAE- RESP PCR PANEL NOT DETECTED; CORONAVIRUS 229E-RESP PCR NOT DETECTED; CORONAVIRUS HKU1-RESP PCR NOT DETECTED; CORONAVIRUS NL63-RESP PCR NOT DETECTED; CORONAVIRUS OC43-RESP PCR NOT DETECTED; HUMAN METAPNEUMOVIRUS NOT DETECTED; INFLUENZA A- RESP PCR PANEL NOT DETECTED; INFLUENZA B - RESP PCR PANEL NOT DETECTED; M. PNEUMONIAE- RESP PCR PANEL NOT DETECTED; PARAINFLUENZA VIRUS 1 NOT DETECTED; PARAINFLUENZA VIRUS 2 NOT DETECTED; PARAINFLUENZA VIRUS 3 NOT DETECTED; PARAINFLUENZA VIRUS 4 NOT DETECTED; RHINOVIRUS/ENTEROVIRUS NOT DETECTED; RSV- RESP PCR PANEL NOT DETECTED; SARS-CoV-2 -RESP PCR PANEL NOT DETECTED
--- NOTE | 2022-08-09 13:03 | ED Physician Documentation ---
History of Present Illness - Stated complaint Stated Complaint: NUMBNESS/FAINTING - Chief complaint Chief Complaint: Neuro - History obtained from History obtained from: Patient - Additonal information Additional information: The patient comes to the emergency department chief complaint of generalized weakness and syncopal episode. She states that she has just had some aches, congestion, and generally not feeling well over the last few days, and today, felt lightheaded after getting up. She states she quickly got down and did not fall and hurt herself, but did briefly lose consciousness she thinks. The patient is concerned because she was exposed to COVID a few days ago and thinks she might have COVID. She has not been coughing or experiencing any shortness of breath or chest pain. She has been a little lightheaded. No fevers or chills. No dysuria. Pt does note that she has had ongoing neck pain since an accident about 3 weeks ago. SHe states her PCP had ordered a C-spine XR series for this next week, but is wondering if she can have it done while she is here, because it is hard to get a ride. 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 HEENT: None Psych: None Musculoskeletal: Osteoarthritis Derm: None - Past Surgical History Past Surgical History: Yes Ortho: Knee replacement, Arthroscopic surgery /TOOL CRIB SUPERVISOR: Hysterectomy, Mastectomy - Present Medications Home Medications: Ambulatory Orders Medication Instructions Recorded Confirmed No Known Home Medications 08/09/22 08/09/22 - Allergies Allergies/Adverse Reactions: Allergies Allergy/AdvReac Type Severity Reaction Status Date / Time codeine Allergy Unknown Verified 08/09/22 08:54 morphine Allergy Unknown Verified 08/09/22 08:54 hydrocodone bitartrate * AdvReac Intermediate "completely Verified 08/09/22 08:54 [From Vicodin] out of it after only one" oxycodone AdvReac Hallucinati Verified 08/09/22 08:54 ons - Social History Does the pt smoke?: No Smoking Status: Never smoker Does the pt drink ETOH?: No Does the pt have substance abuse?: No - Immunizations Immunizations are current?: Yes Immunizations: TDAP current <10years - POLST Patient has POLST: No PD ED PE NORMAL - Vitals Vital signs reviewed: Yes - General General: Alert and oriented X 3, No acute distress, Well developed/nourished - HEENT HEENT: Atraumatic, PERRL, EOMI, Moist mucous membranes - Neck Neck: Supple, no meningeal sign - Cardiac Cardiac: RRR, No murmur, Strong equal pulses - Respiratory Respiratory: No respiratory distress, Clear bilaterally - Abdomen Abdomen: Soft, Non tender, Non distended - Derm Derm: Normal color, Warm and dry, No rash - Extremities Extremities: No deformity, No edema - Neuro Neuro: Alert and oriented X 3 - Psych Psych: Normal mood, Normal affect Results - Vitals Vitals: Oxygen O2 Source Room air - EKG (time done) 0906 Rate: Rate (enter#) (76) Rhythm: NSR [place]: Normal Intervals: Normal MI QRS: Normal Ischemia: Normal ST segments Compare to prior EKG: Unchanged from prior EKG Computer interpretation: Agree with computer - Labs Labs: Laboratory Tests 08/09/22 08/09/22 08/09/22 08:54 09:05 09:05 WBC 4.5 L RBC 4.99 Hgb 15.3 Hct 46.4 MCV 93.0 MCH 30.7 MCHC 33.0 RDW 13.1 Plt Count 212 MPV 9.5 Neut # (Auto) 2.8 Lymph # (Auto) 1.1 L Gem # (Auto) 0.5 Eos # (Auto) 0.1 Baso # (Auto) 0.0 Absolute Nucleated RBC 0.00 Nucleated RBC % 0.0 Sodium 139 Potassium 3.8 Chloride 104 Carbon Dioxide 26 Anion Gap 9.0 BUN 21 H Creatinine 0.8 Estimated GFR (MDRD) 69 L Glucose 118 H POC Whole Bld Glucose 134 H Calcium 9.4 Total Bilirubin 0.7 AST 20 ALT 17 Alkaline Phosphatase 105 Troponin I High Sens Total Protein 6.8 Albumin 4.0 Globulin 2.8 Albumin/Globulin Ratio 1.4 Lipase 38 Urine Color Urine Clarity Urine pH Ur Specific [place] Urine Protein Urine Glucose (UA) Urine Ketones Urine Occult Blood Urine Nitrite Urine Bilirubin Urine Urobilinogen Ur Leukocyte Esterase Ur Microscopic Review Urine Culture Comments Nasal Adenovirus (PCR) Nasal B. parapertussis DNA (PCR) Nasal Coronavir 229E PCR Nasal Coronavir HKU1 PCR Nasal Coronavir NL63 PCR Nasal Coronavir OC43 PCR Nasal Enterovir/Rhinovir PCR Nasal Influenza B PCR Nasal Influenza A PCR Nasal Parainfluen 1 PCR Nasal Parainfluen 2 PCR Nasal Parainfluen 3 PCR Nasal Parainfluen 4 PCR Nasal RSV (PCR) Nasal B.pertussis DNA PCR Nasal C.pneumoniae (PCR) Shlomo Human Metapneumo PCR Nasal M.pneumoniae (PCR) Nasal SARS-CoV-2 (PCR) 08/09/22 08/09/22 08/09/22 09:05 11:30 11:35 WBC RBC Hgb Hct MCV MCH MCHC RDW Plt Count MPV Neut # (Auto) Lymph # (Auto) Gem # (Auto) Eos # (Auto) Baso # (Auto) Absolute Nucleated RBC Nucleated RBC % Sodium Potassium Chloride Carbon Dioxide Anion Gap BUN Creatinine Estimated GFR (MDRD) Glucose POC Whole Bld Glucose Calcium Total Bilirubin AST ALT Alkaline Phosphatase Troponin I High Sens 3.3 Total Protein Albumin Globulin Albumin/Globulin Ratio Lipase Urine Color YELLOW Urine Clarity CLEAR Urine pH 6.0 Ur Specific [place] 1.010 Urine Protein NEGATIVE Urine Glucose (UA) NEGATIVE Urine Ketones NEGATIVE Urine Occult Blood NEGATIVE Urine Nitrite NEGATIVE Urine Bilirubin NEGATIVE Urine Urobilinogen 0.2 (NORMAL) Ur Leukocyte Esterase NEGATIVE Ur Microscopic Review NOT INDICATED Urine Culture Comments NOT INDICATED Nasal Adenovirus (PCR) NOT DETECTED Nasal B. parapertussis DNA (PCR) NOT DETECTED Nasal Coronavir 229E PCR NOT DETECTED Nasal Coronavir HKU1 PCR NOT DETECTED Nasal Coronavir NL63 PCR NOT DETECTED Nasal Coronavir OC43 PCR NOT DETECTED Nasal Enterovir/Rhinovir PCR NOT DETECTED Nasal Influenza B PCR NOT DETECTED Nasal Influenza A PCR NOT DETECTED Nasal Parainfluen 1 PCR NOT DETECTED Nasal Parainfluen 2 PCR NOT DETECTED Nasal Parainfluen 3 PCR NOT DETECTED Nasal Parainfluen 4 PCR NOT DETECTED Nasal RSV (PCR) NOT DETECTED Nasal B.pertussis DNA PCR NOT DETECTED Nasal C.pneumoniae (PCR) NOT DETECTED Shlomo Human Metapneumo PCR NOT DETECTED Nasal M.pneumoniae (PCR) NOT DETECTED Nasal SARS-CoV-2 (PCR) NOT DETECTED - Rads (name of study) cervical spine xr series Radiology: Final report received, EMP read indepedently, See rad report PD MEDICAL DECISION MAKING - ED course Complexity details: reviewed results, re-evaluated patient, considered differential, d/w patient ED course: The pt was treated with IV fluids and worked up with labs, EKG, and c-spine XR series, all of which were unremarkable. The pt was found to be feeling better on re-evaluation. Pt was stable for d/c home. We have discussed the usual indications for follow-up and return. Departure - Departure Disposition: 01 Home, Self Care Clinical Impression: Viral syndrome Episode of syncope Qualifiers: Syncope type: unspecified Qualified Code(s): R55 - Syncope and collapse Condition: Stable Instructions: ED Fainting Unkn Cause Comments: Your labs, EKG, urinalysis, and viral panel are all unremarkable. You do not have COVID. It is not clear why you have been feeling under the weather for the last few days but most likely, you have picked up one of the many viral illnesses that are going around right now. We can only test for a small portion of these, and the viral panel has not, positive for any of the viruses we can test for. You also have likely been dehydrated and this also has most likely contributed to your fainting episode today. You have been rehydrated with IV fluids while here, and worked up broadly to check for any more serious cause of your symptoms. Please get 8 to 10 cups of water every day and get plenty of rest while you work through this illness. The symptoms may last for anywhere from several days to a couple of weeks. Please follow-up with your primary care physician as needed. Discharge Date/Time: 08/09/22 13:20
[2022-08-09 13:09] VITALS: BP 143/70
== END 2022-08-09 13:20 | disposition home or self-care (01) ==
LOC: ED 08:40
DX: B34.9 Viral infection, unspecified (principal); R55 Syncope and collapse; Z20.822 Contact with and (suspected) exposure to COVID-19
CPT/HCPCS: 36415; 80053; 81001; 81003; 83690; 84484; 85025; 87086; 87633; 93005; 99284

== ENCOUNTER 2022-12-19 08:11 | Outpatient (CLI) | payer MEDICARE, BC ==
[2022-12-19 12:34] LABS: BASOPHILS % (AUTO) 0.7 %; EOSINOPHILS # (AUTO) 0.1 10^3/uL (0.0-0.7); EOSINOPHILS % (AUTO) 2.2 %; HGB - HEMOGLOBIN 15.6 g/dL (12.0-16.0); LYMPHOCYTES # (AUTO) 1.7 10^3/uL (1.5-3.5); LYMPHOCYTES % (AUTO) 42.4 %; MEAN CORPUSCULAR HEMOGLOBIN 30.5 pg (27.0-31.0); MEAN CORPUSCULAR HGB CONC 33.2 g/dL (32.0-36.0); MEAN PLATELET VOLUME 11.2 fL (7.9-10.8); MONOCYTES # (AUTO) 0.4 10^3/uL (0.0-1.0); MONOCYTES % (AUTO) 10.2 %; NEUTROPHILS # (AUTO) 1.8 10^3/uL (1.5-6.6); NEUTROPHILS % (AUTO) 44.3 %; PLT - PLATELET COUNT 107 10^3/uL (130-450); RED BLOOD COUNT 5.11 10^6/uL (4.20-5.40); RED CELL DISTRIBUTION WIDTH 13.1 % (12.0-15.0)
[2022-12-19 13:13] LABS: ALBUMIN 4.2 g/dL (3.2-5.5); ALBUMIN/GLOBULIN RATIO 1.6 (1.0-2.2); BILIRUBIN,TOTAL 0.5 mg/dL (0.2-1.0); CALCIUM 9.7 mg/dL (8.5-10.3); POTASSIUM 4.5 mmol/L (3.5-5.0); TOTAL PROTEIN 6.8 g/dL (6.7-8.2)
== END 2022-12-19 08:12 | disposition home or self-care (01) ==
LOC: LAB.N 08:11
PROVIDERS: ATTEND Physician Assistant Medical
DX: K21.9 Gastro-esophageal reflux disease without esophagitis (principal); K13.29 Other disturbances of oral epithelium, including tongue
CPT/HCPCS: 36415; 80053; 82607; 85025

== ENCOUNTER 2023-03-06 09:51 | Outpatient (CLI) | payer MEDICARE, BC ==
[2023-03-06 12:03] LABS: BASOPHILS % (AUTO) 0.7 %; EOSINOPHILS # (AUTO) 0.1 10^3/uL (0.0-0.7); HCT - HEMATOCRIT 47.4 % (37.0-47.0); HGB - HEMOGLOBIN 15.7 g/dL (12.0-16.0); LYMPHOCYTES # (AUTO) 1.3 10^3/uL (1.5-3.5); MEAN CORPUSCULAR HEMOGLOBIN 30.5 pg (27.0-31.0); MEAN CORPUSCULAR HGB CONC 33.1 g/dL (32.0-36.0); MEAN PLATELET VOLUME 11.2 fL (7.9-10.8); MONOCYTES # (AUTO) 0.4 10^3/uL (0.0-1.0); MONOCYTES % (AUTO) 8.9 %; NEUTROPHILS # (AUTO) 2.2 10^3/uL (1.5-6.6); NEUTROPHILS % (AUTO) 55.2 %; PLT - PLATELET COUNT 119 10^3/uL (130-450); RED BLOOD COUNT 5.15 10^6/uL (4.20-5.40); RED CELL DISTRIBUTION WIDTH 13.5 % (12.0-15.0); WHITE BLOOD COUNT 4.1 x10^3/uL (4.8-10.8)
[2023-03-06 12:12] LABS: RHEUMATOID FACTOR NEGATIVE (Negative)
[2023-03-06 12:33] LABS: CK- CREATINE KINASE 59 IU/L (22-269); URIC ACID 6.6 mg/dL (2.6-7.2)
[2023-03-06 12:34] LABS: CRP - C-REACTIVE PROTEIN < 1.0 mg/dL (0-1.0)
[2023-03-07 06:10] LABS: VITAMIN D 25-HYDROXY 31.4 ng/mL (30.0-100.0)
[2023-03-07 17:08] LABS: ANTI-DNA (DS) AB QN <1 IU/mL (0-9)
[2023-03-08 13:10] LABS: CYCLIC CITRULLINATED PEP IGG/A 4 units (0-19)
[2023-03-08 19:07] LABS: ANTINUCLEAR ANTIBODIES IFA Negative (.)
== END 2023-03-06 09:52 | disposition home or self-care (01) ==
LOC: LAB.N 09:51
PROVIDERS: ATTEND Physician Assistant Medical
DX: M79.10 Myalgia, unspecified site (principal)
CPT/HCPCS: 36415; 82306; 82550; 84550; 85025; 85651; 86038; 86140; 86200; 86225; 86430

== ENCOUNTER 2023-03-06 10:00 | Outpatient (CLI) | payer MEDICARE, BC ==
--- NOTE | 2023-03-06 12:38 | XRAY Report ---
PROCEDURE: Lumbar Spine 2 View INDICATIONS: LUMBAR RADICULOPATHY TECHNIQUE: 3 views of the lumbar spine were acquired. COMPARISON: 10/13/2014 FINDINGS: Bones: 5 [id number] vertebrae are present. Mild rightward curvature. Trace anterolisthesis L4 o n 5 and mild lateral subluxation of L2 on 3. There is mild scalloping of several lumbar superior endp lates, but no evidence of acute fracture. Moderately severe, slightly asymmetric L to 3 disc height l oss. Moderate L4-5 disc height loss. Mild facet arthropathy L4-5 and L5-S1.. No suspicious bony lesi ons. Soft tissues: Overlying bowel gas pattern is normal. No suspicious soft tissue calcifications. Hea vy atherosclerotic calcification of the abdominal aorta and proximal common iliac arteries. IMPRESSION: 1. Progression of degenerative disc, endplate, and facet joint changes in the lumbar spine since the prior study. This results in progressed scoliosis and spondylolisthesis. Reviewed by: Noelle Deras MD on 03/06/2023 12:37 PM PDT Approved by: Noelle Deras MD on 03/06/2023 12:37 PM PDT Station ID: [id number]
--- NOTE | 2023-03-06 12:39 | XRAY Report ---
PROCEDURE: Femurs 2V BILAT INDICATIONS: MYALGIA TECHNIQUE: 2 views of each femur were acquired. COMPARISON: None. FINDINGS: Bones: No fractures or dislocations. No suspicious bony lesions. Left knee medial hemiarthroplast y components in place. Soft tissues: No suspicious soft tissue calcifications or masses. Mild peripheral vascular calcifi cation bilaterally. IMPRESSION: No acute bony abnormality. No suspicious bone lesion. If there is continued concern for occult bone lesion, nuclear medicine bon e scan is recommended. Reviewed by: Noelle Deras MD on 03/06/2023 12:38 PM PDT Approved by: Noelle Deras MD on 03/06/2023 12:38 PM PDT Station ID: [id number]
--- NOTE | 2023-03-06 12:40 | XRAY Report ---
PROCEDURE: Tib/Fib BILAT INDICATIONS: MYALGIA TECHNIQUE: 2 views of the tibia and fibula were acquired. COMPARISON: None. FINDINGS: Bones: No fractures or dislocations. No suspicious bony lesions. Soft tissues: No suspicious soft tissue calcifications or masses. IMPRESSION: No acute bony abnormality. Reviewed by: Noelle Deras MD on 03/06/2023 12:38 PM PDT Approved by: Noelle Deras MD on 03/06/2023 12:38 PM PDT Station ID: [id number]
== END 2023-03-06 10:01 | disposition home or self-care (01) ==
LOC: DI.N 10:00
PROVIDERS: ATTEND Physician Assistant Medical
DX: M51.16 Intervertebral disc disorders with radiculopathy, lumbar region (principal); M43.16 Spondylolisthesis, lumbar region; M47.26 Other spondylosis with radiculopathy, lumbar region; M79.10 Myalgia, unspecified site
CPT/HCPCS: 36415; 82306; 82550; 84550; 85025; 85651; 86038; 86140; 86200; 86225; 86430

== ENCOUNTER 2023-03-12 10:56 | Outpatient (CLI) | payer MEDICARE, BC ==
--- NOTE | 2023-03-12 12:33 | Ultrasound Report ---
PROCEDURE: Duplex Lwr Ext Arterial Bilat INDICATIONS: BILATERAL CLAUDICATION TECHNIQUE: Color and pulse Doppler interrogation was performed of both lower extremity arterial systems, with im age documentation. COMPARISON: None FINDINGS: Right lower extremity: Common femoral artery: 1:15 cm/sec, with biphasic flow. Deep femoral artery: 125 cm/sec, with triphasic flow. Proximal superficial femoral artery: 91 cm/sec, with triphasic flow. Mid superficial femoral artery: 71 cm/sec, with triphasic flow. Distal superficial femoral artery: 89 cm/sec, with triphasic flow. Popliteal artery: 29 cm/sec, with biphasic flow. Posterior tibial artery: 29 cm/sec, with biphasic flow. Anterior tibial artery/dorsalis pedis: 37/67 cm/sec, with biphasic flow. Barber-scale imaging description: Large calcified plaque in the right FENCE MAKING MACHINE OPERATOR diffuse moderate plaque. Inc idental note of thrombus in the posterior tibial artery. Left lower extremity: Common femoral artery: 71 cm/sec, with triphasic flow. Deep femoral artery: 54 cm/sec, with biphasic flow. Proximal superficial femoral artery: 19 cm/sec, with triphasic flow. Mid superficial femoral artery: 106 cm/sec, with biphasic flow. Distal superficial femoral artery: 76 cm/sec, with biphasic flow. Popliteal artery: 66 cm/sec, with biphasic flow. Posterior tibial artery: 56 cm/sec, with biphasic flow. Anterior tibial artery/dorsalis pedis: 46/37 cm/sec, with biphasic flow. Barber-scale imaging description: Diffuse moderate plaque. Incidental note of thrombus in the posterio r tibial artery. IMPRESSION: 1. No significant stenosis bilaterally by velocity/waveform criteria. 2. Significant appearing calcified thrombus is noted in the right FENCE MAKING MACHINE OPERATOR. 3. Incidental finding of superficial vein thrombosis in the posterior tibial veins bilaterally. Reviewed by: Jozef Reed on 03/12/2023 11:32 AM [facility] Approved by: Jozef Reed on 03/12/2023 11:32 AM [facility] Station ID: [id number]
== END 2023-03-12 10:57 | disposition home or self-care (01) ==
LOC: DI 10:56
PROVIDERS: ATTEND Family Medicine
DX: I73.9 Peripheral vascular disease, unspecified (principal); I74.3 Embolism and thrombosis of arteries of the lower extremities
CPT/HCPCS: 93925

== ENCOUNTER 2023-03-26 10:59 | Outpatient (CLI) | payer MEDICARE, BC ==
--- NOTE | 2023-03-26 11:35 | CT Report ---
PROCEDURE: LUMBAR SPINE WO INDICATIONS: LUMBAR RADICULOPATHY TECHNIQUE: Noncontrast 3 mm thick sections acquired from the T12 level to the sacrum. Sagittal and coronal refo rmats were constructed. For radiation dose reduction, the following was used: automated exposure co ntrol, adjustment of mA and/or kV according to patient size. COMPARISON: Lumbar spine radiographs dated 03/06/[address] abdomen and pelvis dated 11/16/2015. FINDINGS: Image quality: Excellent. Bones: There is normal bony alignment. No acute vertebral body compression fractures. No suspiciou s lytic or blastic bony lesions. Severe multilevel degenerative endplate changes identified. There i s a small Schmorl's node identified in the superior endplate of L2. Schmorl's nodes identified at L2- 3 larger involving the superior endplate of L3. Schmorl's nodes also noted over the superior endplate of L4 as well as the superior and inferior endplates of the L4-5 level. Significant disc space loss at L2-3 and L4-5. Moderate reactive degenerative endplate changes at L2-3 and L4-5. No pars defects. T12-L1: No significant neuroforaminal stenosis or spinal canal stenosis. L1-L2: Mild degenerative endplate changes. Small symmetric disc bulge. Bilateral facet arthropathy . Findings result in mild bilateral neuroforaminal stenosis. L2-L3: Moderate degenerative endplate changes and disc height loss. Prominent disc bulge. Moderate bilateral facet arthropathy. Combination of findings result in severe left and moderate-severe right bilateral neuroforaminal stenosis and moderate-severe spinal canal stenosis. L3-L4: Mild disc space loss. Degenerative endplate changes. Symmetric disc bulge. Ligamentum flavum hypertrophy. Moderate bilateral facet arthropathy. Combination of findings result in severe spinal c anal stenosis and moderate-severe bilateral neuroforaminal stenosis. L4-L5: Severe degenerative endplate changes and disc height loss. Symmetric disc bulge. Moderate bi lateral facet arthropathy. Combination of findings result in moderate-severe right and severe left bi lateral neuroforaminal stenosis with severe spinal canal stenosis. L5-S1: Mild disc height loss. Mild degenerative endplate changes. Small symmetric disc bulge. Moder ate bilateral facet arthropathy. Findings result in moderate bilateral neuroforaminal stenosis and mo derate spinal canal stenosis. Soft tissues: No retroperitoneal masses or hematomas. Visualized aorta is normal in caliber. Modera te atherosclerosis. Stable lobular contour involving the inferior, medial aspect of the spleen. IMPRESSION: 1. Lumbar spine without acute osseous abnormalities. 2. Severe multilevel, multifactorial lumbar spondylosis as detailed above by vertebral body level. Th ere are multiple levels of at least moderate-severe neuroforaminal stenosis as well as severe spinal canal stenosis. Findings are most pronounced at L3-4 and L4-5. Reviewed by: Forrest Marcus MD on 03/26/2023 10:34 AM [facility] Approved by: Forrest Marcus MD on 03/26/2023 10:34 AM [facility] Station ID: [id number]
== END 2023-03-26 11:00 | disposition home or self-care (01) ==
LOC: DI 10:59
PROVIDERS: ATTEND Physician Assistant Medical
DX: M47.26 Other spondylosis with radiculopathy, lumbar region (principal); M48.061 Spinal stenosis, lumbar region without neurogenic claudication; M51.17 Intervertebral disc disorders with radiculopathy, lumbosacral region; M47.27 Other spondylosis with radiculopathy, lumbosacral region

== ENCOUNTER 2023-05-11 08:16 | Outpatient (CLI) | payer MEDICARE, BC | END 2023-05-11 08:17 | disposition critical access hospital (66) | LOC: EMS 08:16 | DX: R55 Syncope and collapse (principal); R53.1 Weakness | CPT/HCPCS: A0425; A0429 ==

== ENCOUNTER 2023-05-11 08:34 | Emergency (ER) | payer MEDICARE, BC ==
[2023-05-11 09:03] LABS: BASOPHILS % (AUTO) 0.6 %; EOSINOPHILS # (AUTO) 0.1 10^3/uL (0.0-0.7); EOSINOPHILS % (AUTO) 2.5 %; HGB - HEMOGLOBIN 15.1 g/dL (12.0-16.0); LYMPHOCYTES # (AUTO) 1.3 10^3/uL (1.5-3.5); MEAN CORPUSCULAR HEMOGLOBIN 31.3 pg (27.0-31.0); MEAN CORPUSCULAR HGB CONC 33.6 g/dL (32.0-36.0); MEAN CORPUSCULAR VOLUME 93.2 fL (81.0-99.0); MEAN PLATELET VOLUME 10.1 fL (7.9-10.8); MONOCYTES # (AUTO) 0.3 10^3/uL (0.0-1.0); MONOCYTES % (AUTO) 9.3 %; NEUTROPHILS # (AUTO) 1.5 10^3/uL (1.5-6.6); NEUTROPHILS % (AUTO) 46.6 %; PLT - PLATELET COUNT 149 10^3/uL (130-450); RED BLOOD COUNT 4.83 10^6/uL (4.20-5.40); RED CELL DISTRIBUTION WIDTH 12.2 % (12.0-15.0); WHITE BLOOD COUNT 3.2 x10^3/uL (4.8-10.8)
[2023-05-11 09:20] LABS: ALBUMIN/GLOBULIN RATIO 1.7 (1.0-2.2); BILIRUBIN,TOTAL 0.5 mg/dL (0.2-1.0); CALCIUM 9.7 mg/dL (8.5-10.3); POTASSIUM 4.2 mmol/L (3.5-4.5); TOTAL PROTEIN 6.3 g/dL (6.4-8.9)
[2023-05-11] MEDS ORDERED: SODIUM CHLORIDE 0.9% 1,000 ML IV STA (10:10)
[2023-05-11 10:22] LABS: BILIRUBIN,URINE NEGATIVE (NEGATIVE); GLUCOSE, URINE (UA) NEGATIVE (NEGATIVE); KETONES,URINE (UA) NEGATIVE (NEGATIVE); LEUKOCYTE ESTERASE, URINE NEGATIVE (NEGATIVE); NITRITE,URINE NEGATIVE (NEGATIVE); OCCULT BLOOD,URINE NEGATIVE (NEGATIVE); PH,URINE 7.5 PH (5.0-7.5); PROTEIN,URINE NEGATIVE (NEGATIVE); UROBILINOGEN,URINE 0.2 (NORMAL) E.U./dL (NORMAL)
[2023-05-11 10:24] LABS: CLARITY,URINE CLEAR (CLEAR)
[2023-05-11 11:05] VITALS: BP 144/89; O2SAT 96
--- NOTE | 2023-05-11 11:26 | ED Physician Documentation ---
History of Present Illness - Stated complaint Stated Complaint: NEAR SYNCOPE - Chief complaint Chief Complaint: General - History obtained from History obtained from: Patient - Additonal information Additional information: Patient is a 77-year-old with reported history of hypoglycemia presenting for feeling lightheaded this morning. Also reports feeling like her sugar was low and she took a good glucose tablet. She reported was starting to feel better but when EMS arrived and she tried to stand up she again felt lightheaded and took another glucose tablet. Her blood sugar is 102 for EMS. Patient reports eating a lot of soda bread that she made for the past 2 days. She has not had anything yet to eat or drink today. She has not diabetic and does not take any current medications. Denies headache, chest pain, shortness of air. Reports feeling generally weak. Does report that she has been doing more in the last 2 days that she is preparing for a camping trip. 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 : None HEENT: None Psych: None Musculoskeletal: Osteoarthritis Derm: None - Past Surgical History Past Surgical History: Yes Ortho: Knee replacement, Arthroscopic surgery /VOCATIONAL NURSE LVN: Hysterectomy, Mastectomy - Present Medications Home Medications: Ambulatory Orders Medication Instructions Recorded Confirmed No Known Home Medications 08/09/22 05/11/23 - Allergies Allergies/Adverse Reactions: Allergies Allergy/AdvReac Type Severity Reaction Status Date / Time codeine Allergy Unknown Verified 05/11/23 08:46 morphine Allergy Unknown Verified 05/11/23 08:46 hydrocodone bitartrate * AdvReac Intermediate "completely Verified 05/11/23 08:46 [From Vicodin] out of it after only one" oxycodone AdvReac Hallucinati Verified 05/11/23 08:46 ons - Social History Does the pt smoke?: No Smoking Status: Never smoker Does the pt drink ETOH?: No Does the pt have substance abuse?: No - Immunizations Immunizations are current?: Yes Immunizations: TDAP current <10years - POLST Patient has POLST: No PD ED PE NORMAL - General General: Alert and oriented X 3, No acute distress, Well developed/nourished - HEENT HEENT: Atraumatic, PERRL, EOMI, Moist mucous membranes, Pharynx benign - Neck Neck: Supple, no meningeal sign - Cardiac Cardiac: RRR, No murmur, Strong equal pulses - Respiratory Respiratory: No respiratory distress, Clear bilaterally - Abdomen Abdomen: Soft, Non tender - Derm Derm: Warm and dry - Extremities Extremities: No deformity - Neuro Neuro: Alert and oriented X 3, pharmacy resident 2-12 intact, No motor deficit, No sensory deficit, Normal speech, Other (Normal unassisted gait) Eye Opening: Spontaneous Motor: Obeys Commands Verbal: Oriented GCS Score: 15 Results - Vitals Vitals: Vital Signs - 24 hr 05/11/23 05/11/23 05/11/23 08:42 09:32 09:51 Temperature 36.4 C L Heart Rate 55 L 55 L Heart Rate [ 62 Sitting] Heart Rate [ 55 L Standing] Heart Rate [ 55 L Supine] Respiratory 15 16 Rate Blood Pressure 147/77 H 159/67 H Blood Pressure 161/83 H [Sitting] Blood Pressure 158/77 H [Standing] Blood Pressure 129/78 [Supine] O2 Saturation 98 100 05/11/23 11:00 Temperature Heart Rate 59 L Heart Rate [ Sitting] Heart Rate [ Standing] Heart Rate [ Supine] Respiratory 23 Rate Blood Pressure 144/89 H Blood Pressure [Sitting] Blood Pressure [Standing] Blood Pressure [Supine] O2 Saturation 96 Oxygen O2 Source Room air - EKG (time done) 0901 EKG releavant findings:: EKG personally interpreted by author of this note. Relevant findings are: Rate 54, sinus bradycardia, no STEMI Rate: Rate (enter#) (54) Rhythm: Sinus bradycardia Intervals: No: Prolonged QT Ischemia: No: ST elevation c/w ischemia - Labs Labs: Laboratory Tests 05/11/23 05/11/23 05/11/23 08:58 08:58 09:07 WBC 3.2 L RBC 4.83 Hgb 15.1 Hct 45.0 MCV 93.2 MCH 31.3 H MCHC 33.6 RDW 12.2 Plt Count 149 MPV 10.1 Neut # (Auto) 1.5 Lymph # (Auto) 1.3 L [place] # (Auto) 0.3 Eos # (Auto) 0.1 Baso # (Auto) 0.0 Absolute Nucleated RBC 0.00 Nucleated RBC % 0.0 Sodium 140 Potassium 4.2 Chloride 106 Carbon Dioxide 30 Anion Gap 4.0 L BUN 15 Creatinine 1.0 Estimated GFR (MDRD) 53 L Glucose 104 POC Whole Bld Glucose 76 Calcium 9.7 Total Bilirubin 0.5 AST 17 ALT 15 Alkaline Phosphatase 73 Total Protein 6.3 L Albumin 4.0 Globulin 2.3 Albumin/Globulin Ratio 1.7 Lipase 30 Urine Color Urine Clarity Urine pH Ur Specific [place] Urine Protein Urine Glucose (UA) Urine Ketones Urine Occult Blood Urine Nitrite Urine Bilirubin Urine Urobilinogen Ur Leukocyte Esterase Ur Microscopic Review Urine Culture Comments 05/11/23 10:09 WBC RBC Hgb Hct MCV MCH MCHC RDW Plt Count MPV Neut # (Auto) Lymph # (Auto) [place] # (Auto) Eos # (Auto) Baso # (Auto) Absolute Nucleated RBC Nucleated RBC % Sodium Potassium Chloride Carbon Dioxide Anion Gap BUN Creatinine Estimated GFR (MDRD) Glucose POC Whole Bld Glucose Calcium Total Bilirubin AST ALT Alkaline Phosphatase Total Protein Albumin Globulin Albumin/Globulin Ratio Lipase Urine Color YELLOW Urine Clarity CLEAR Urine pH 7.5 Ur Specific [place] 1.010 Urine Protein NEGATIVE Urine Glucose (UA) NEGATIVE Urine Ketones NEGATIVE Urine Occult Blood NEGATIVE Urine Nitrite NEGATIVE Urine Bilirubin NEGATIVE Urine Urobilinogen 0.2 (NORMAL) Ur Leukocyte Esterase NEGATIVE Ur Microscopic Review NOT INDICATED Urine Culture Comments NOT INDICATED PD Medical Decision Making - ED course Complexity details: reviewed results, re-evaluated patient, d/w patient ED course: Patient presenting for evaluation of feeling lightheaded and feeling that her blood sugar was low. Patient here is feeling much better. EKG shows a sinus rhythm and is nonischemic. No chest pain or shortness of air to suggest ACS. No deficits to suggest a stroke. CBC, chemistries and urinalysis were obtained and reviewed and without significant findings. She is feeling better after IV fluids. She is ambulatory here. She was not found to be hypoglycemic and is tolerating oral intake. Patient was counseled on eating regularly throughout the day including meals with complex carbohydrates and protein To help maintain her blood sugars. She is counseled on need for close follow-up with her primary care and advised on concerning symptoms to return for. Departure - Departure Disposition: 01 Home, Self Care Clinical Impression: Episodic lightheadedness, History of hypoglycemia Condition: Stable Instructions: ED Blood Sugar Low Non Diabetic, ED Near Syncope Unkn Comments: Please make sure to eat proper meals today with complex carbohydrates and protein as this will maintain your blood sugar over a longer time then glucose tablets or orange juice. Please continue to stay hydrated and take it easy with your activity. I would recommend close follow-up with your primary care provider. Return to the emergency department with any worsening symptoms. Forms: PCP List Discharge Date/Time: 05/11/23 11:40
== END 2023-05-11 11:40 | disposition home or self-care (01) ==
LOC: EDUNIT# → ED 08:34
DX: R42 Dizziness and giddiness (principal)
CPT/HCPCS: 36415; 80053; 81001; 81003; 83690; 85025; 87086; 93005; 99283; 99284

== ENCOUNTER 2023-10-20 10:32 | Outpatient (CLI) | payer MEDICARE, BC ==
--- NOTE | 2023-10-20 14:02 | XRAY Report ---
PROCEDURE: Chest 2V INDICATIONS: ACUTE LOWER RESPIRATORY INFECTION TECHNIQUE: 2 views of the chest were acquired. COMPARISON: None. FINDINGS: Surgical changes and devices: None. Lungs and pleura: No pleural effusions or pneumothorax. Lungs are clear. Mediastinum: Mediastinal contours appear normal. Heart size is normal. Bones and chest wall: Postoperative changes in the right breast with a metallic target shaped object projecting over right chest. IMPRESSION: No acute cardiopulmonary process. Reviewed by: Hu Barrera MD on 10/20/2023 2:01 PM PST Approved by: Hu Barrera MD on 10/20/2023 2:01 PM [facility] Station ID: [id number]
== END 2023-10-20 10:33 | disposition home or self-care (01) ==
LOC: DI.N 10:32
PROVIDERS: ATTEND Physician Assistant Medical
DX: J22 Unspecified acute lower respiratory infection (principal)

== ENCOUNTER 2023-11-17 10:53 | Outpatient (CLI) | payer MEDICARE, BC ==
[2023-11-17] MEDS ORDERED: iohexoL-300 100 ML VIAL ONE (11:32)
--- NOTE | 2023-11-17 13:03 | CT Report ---
PROCEDURE: Chest W INDICATIONS: SHORT OF BREATH CONTRAST: 100ml omni 300 TECHNIQUE: After the administration of intravenous contrast, a CT scan of the chest was performed. Images were recorded and evaluated at appropriate window settings. Reformats: axial MIP of the chest, coronal and sagittal. For radiation dose reduction, the following was used: automated exposure control, adjustme nt of mA and/or kV according to patient size. COMPARISON: None. FINDINGS: Image quality: Diagnostic. Chest wall and lower neck: No thyroid nodule which requires sonographic follow up. No axillary or sup raclavicular adenopathy by size. Right breast implant with spacer. Lungs and pleura: No consolidation. No pleural effusions. No pneumothorax. Multiple solid pulmonary nodules. Largest examples include: - 2 mm solid nodule, left upper lobe (series 4, image 19). -2 mm solid nodule, medial right middle lobe (series 4, image 58). -4 mm juxtapleural nodule with smooth margins in the medial right upper lobe (series 4, image 18). Mediastinum: Heart size is enlarged. No pericardial effusion. No large vessel abnormality. No mediast inal adenopathy by size criteria. Two-vessel coronary calcifications. Bones: No aggressive osseous abnormality. Upper Abdomen: Unremarkable. IMPRESSION: No findings to explain the patient's shortness of breath. Scattered solid pulmonary micronodules. Findings are nonspecific in the presumed history of breast ca ncer. Reviewed by: Miles Padilla MD on 11/17/2023 1:02 PM PST Approved by: Miles Padilla MD on 11/17/2023 1:02 PM PST Station ID: [id number]
[2023-11-17] MEDS: iohexoL-300 100 ML VIAL IVP ONE (14:03)
== END 2023-11-17 10:54 | disposition home or self-care (01) ==
LOC: LAB 10:53
PROVIDERS: ATTEND Nurse Practitioner
DX: R06.02 Shortness of breath (principal); R91.8 Other nonspecific abnormal finding of lung field
CPT/HCPCS: 36415; 71260; 82565; Q9967

== ENCOUNTER 2023-11-23 08:47 | Emergency (ER) | payer MEDICARE, BC ==
[2023-11-23 09:18] LABS: BASOPHILS % (AUTO) 0.6 %; EOSINOPHILS # (AUTO) 0.1 10^3/uL (0.0-0.7); EOSINOPHILS % (AUTO) 2.6 %; HCT - HEMATOCRIT 44.5 % (37.0-47.0); HGB - HEMOGLOBIN 14.5 g/dL (12.0-16.0); LYMPHOCYTES # (AUTO) 1.2 10^3/uL (1.5-3.5); LYMPHOCYTES % (AUTO) 22.8 %; MEAN CORPUSCULAR HEMOGLOBIN 30.7 pg (27.0-31.0); MEAN CORPUSCULAR HGB CONC 32.6 g/dL (32.0-36.0); MEAN CORPUSCULAR VOLUME 94.3 fL (81.0-99.0); MEAN PLATELET VOLUME 9.9 fL (7.9-10.8); MONOCYTES # (AUTO) 0.4 10^3/uL (0.0-1.0); MONOCYTES % (AUTO) 7.9 %; NEUTROPHILS # (AUTO) 3.3 10^3/uL (1.5-6.6); NEUTROPHILS % (AUTO) 65.7 %; PLT - PLATELET COUNT 174 10^3/uL (130-450); RED BLOOD COUNT 4.72 10^6/uL (4.20-5.40); WHITE BLOOD COUNT 5.1 x10^3/uL (4.8-10.8)
--- NOTE | 2023-11-23 09:20 | XRAY Report ---
PROCEDURE: Chest 1V INDICATIONS: chest pain TECHNIQUE: One view of the chest was acquired. COMPARISON: None. FINDINGS: Surgical changes and devices: None. Lungs and pleura: No pleural effusions or pneumothorax. Lungs are clear. Mediastinum: Mediastinal contours appear normal. Heart size is normal. Bones and chest wall: No suspicious bony lesions. Overlying soft tissues appear unremarkable. IMPRESSION: No acute cardiopulmonary process. Reviewed by: Miles Padilla MD on 11/23/2023 9:18 AM PDT Approved by: Miles Padilla MD on 11/23/2023 9:18 AM PDT Station ID: [id number]
[2023-11-23 09:39] LABS: ALBUMIN 3.8 g/dL (3.2-5.5); ALBUMIN/GLOBULIN RATIO 1.7 (1.0-2.2); BILIRUBIN,TOTAL 0.4 mg/dL (0.2-1.0); CALCIUM 9.7 mg/dL (8.5-10.3); POTASSIUM 4.1 mmol/L (3.5-4.5); TOTAL PROTEIN 6.1 g/dL (6.4-8.9)
[2023-11-23 09:45] LABS: TROPONIN I HIGH SENSITIVITY 2.9 ng/L (2.3-14.8)
--- NOTE | 2023-11-23 11:08 | ED Physician Documentation ---
PD HPI DYSPNEA - Stated complaint Stated Complaint: Dyspnea - Chief complaint Chief Complaint: Cardiac - History obtained from History obtained from: Patient - Additional information Additional information: Patient comes to the emergency department chief complaint of dyspnea for the last few months. She states it started at the beginning of August when she had what seemed like a viral upper respiratory infection. However, it never went away. The patient has continued to have a sense of dyspnea ever since, particular with ambulation. She has had x-rays and recently had a CT last Monday, the results of which she does not know. She is scheduled for an echocardiogram on the of this month. The patient states that she is tired of feeling this way because she feels like she does not have the energy to get things done like she needs to. The patient denies chest pain. She has no history of cardiac issues she states. She denies any swelling in her lower extremities. No calf pain. PD PAST MEDICAL HISTORY - Past Medical History Past Medical History: Yes Cardiovascular: None Respiratory: None Neuro: None Endocrine/Autoimmune: Other GI: GERD, Other [employer] MECH[employer]IC: Breast cancer : None HEENT: None Psych: None Musculoskeletal: Osteoarthritis Derm: None - Past Surgical History Past Surgical History: Yes Ortho: Knee replacement, Arthroscopic surgery /[employer] MECH[employer]IC: Hysterectomy, Mastectomy - Present Medications Home Medications: Ambulatory Orders Medication Instructions Recorded Confirmed No Known Home Medications 08/09/22 11/23/23 - Allergies Allergies/Adverse Reactions: Allergies Allergy/AdvReac Type Severity Reaction Status Date / Time codeine Allergy Unknown Verified 11/23/23 09:01 morphine Allergy Unknown Verified 11/23/23 09:01 hydrocodone bitartrate * AdvReac Intermediate "completely Verified 11/23/23 09:01 [From Vicodin] out of it after only one" oxycodone AdvReac Hallucinati Verified 11/23/23 09:01 ons - Social History Does the pt smoke?: No Smoking Status: Never smoker Does the pt drink ETOH?: No Does the pt have substance abuse?: No - Immunizations Immunizations are current?: Yes Immunizations: TDAP current <10years - POLST Patient has POLST: No PD ED PE NORMAL - Vitals Vital signs reviewed: Yes - General General: Alert and oriented X 3, No acute distress, Well developed/nourished - HEENT HEENT: Atraumatic, PERRL, EOMI, Moist mucous membranes - Neck Neck: Supple, no meningeal sign - Cardiac Cardiac: RRR, No murmur - Respiratory Respiratory: No respiratory distress, Clear bilaterally - Abdomen Abdomen: Soft, Non tender, Non distended - Derm Derm: Normal color, Warm and dry, No rash - Extremities Extremities: No deformity, No edema, No calf tenderness / cord - Neuro Neuro: Other (Alert, grossly intact.) - Psych Psych: Normal mood, Normal affect Results - Vitals Vitals: Oxygen O2 Source Room air - EKG (time done) 0901 EKG releavant findings:: EKG personally interpreted by author of this note. Relevant findings are: Rate: Rate (enter#) (62) Rhythm: NSR [place]: Normal Ischemia: ST elevation c/w repol Compare to prior EKG: Old EKG unavailable Computer interpretation: Agree with computer - Labs Labs: Laboratory Tests 11/23/23 11/23/23 11/23/23 09:12 09:12 09:12 WBC 5.1 RBC 4.72 Hgb 14.5 Hct 44.5 MCV 94.3 MCH 30.7 MCHC 32.6 RDW 13.0 Plt Count 174 MPV 9.9 Neut # (Auto) 3.3 Lymph # (Auto) 1.2 L [place] # (Auto) 0.4 Eos # (Auto) 0.1 Baso # (Auto) 0.0 Absolute Nucleated RBC 0.00 Nucleated RBC % 0.0 Sodium 140 Potassium 4.1 Chloride 106 Carbon Dioxide 29 Anion Gap 5.0 L BUN 15 Creatinine 1.0 Estimated GFR (MDRD) 53 L Glucose 107 H Calcium 9.7 Total Bilirubin 0.4 AST 15 ALT 13 Alkaline Phosphatase 69 Troponin I High Sens 2.9 B-Natriuretic Peptide 156 H Total Protein 6.1 L Albumin 3.8 Globulin 2.3 Albumin/Globulin Ratio 1.7 Lipase 31 11/23/23 11:29 WBC RBC Hgb Hct MCV MCH MCHC RDW Plt Count MPV Neut # (Auto) Lymph # (Auto) [place] # (Auto) Eos # (Auto) Baso # (Auto) Absolute Nucleated RBC Nucleated RBC % Sodium Potassium Chloride Carbon Dioxide Anion Gap BUN Creatinine Estimated GFR (MDRD) Glucose Calcium Total Bilirubin AST ALT Alkaline Phosphatase Troponin I High Sens 3.4 B-Natriuretic Peptide Total Protein Albumin Globulin Albumin/Globulin Ratio Lipase - Rads (name of study) Chest x-ray Relevant Findings:: Final report received, See rad report (neg) PD Medical Decision Making - ED course Complexity details: reviewed results, re-evaluated patient, considered differential, d/w patient ED course: The patient was worked up with laboratory studies including troponin and BNP. Chest x-ray is negative, as was the report from her CT scan last week. EKG was unremarkable. Patient did not have any swelling, fever, or cough to indicate a PE or infectious process. She was stable for discharge home. Departure - Departure Disposition: Home, Self Care Clinical Impression: Dyspnea Qualifiers: Dyspnea type: dyspnea on exertion Qualified Code(s): R06.09 - Other forms of dyspnea Condition: Stable Instructions: ED Dyspnea Shortness of Breath Comments: Your CT scan from Monday did not show any worrisome findings. Your x-ray and labs from today also look fairly good. You have mild elevation of the lab we used to look for congestive heart failure and the follow-up echocardiogram will help sort this out. It is important that you follow-up for this and also continue to follow with your primary doctor regarding your symptoms. If the echo does not yield any positive information, then you may need to be referred to a management specialist. Forms: PCP List Discharge Date/Time: 11/23/23 12:39
[2023-11-23 12:46] VITALS: BP 158/87; O2SAT 99
== END 2023-11-23 12:39 | disposition home or self-care (01) ==
LOC: ED 08:47
DX: R06.09 Other forms of dyspnea (principal); Z85.3 Personal history of malignant neoplasm of breast; M19.90 Unspecified osteoarthritis, unspecified site
CPT/HCPCS: 36415; 80053; 83690; 83880; 84484; 85025; 93005; 99284

== ENCOUNTER 2023-12-06 10:18 | Outpatient (CLI) | payer MEDICARE, BC ==
--- NOTE | 2023-12-06 21:09 | XRAY Report ---
PROCEDURE: Shoulder 2+V RT INDICATIONS: RIGHT SHOULDER PAIN TECHNIQUE: 3 views of the shoulder were acquired. COMPARISON: 07/28/2022 FINDINGS: Bones: No fractures or dislocations. No suspicious bony lesions. Visualized ribs appear intact. Soft tissues: No suspicious soft tissue calcifications. IMPRESSION: Unremarkable shoulder radiographs Reviewed by: Tyrone Soto MD on 12/06/2023 8:08 PM AKDT Approved by: Tyrone Soto MD on 12/06/2023 8:08 PM AKDT Station ID: [id number]
--- NOTE | 2023-12-06 21:12 | XRAY Report ---
PROCEDURE: Humerus RT INDICATIONS: RIGHT UPPER ARM PAIN TECHNIQUE: 2 views of the humerus were acquired. COMPARISON: None FINDINGS: Bones: No fractures or dislocations. No suspicious bony lesions. Soft tissues: No suspicious soft tissue calcifications. IMPRESSION: Unremarkable humeral radiographs Reviewed by: Tyrone Soto MD on 12/06/2023 8:11 PM AKDT Approved by: Tyrone Soto MD on 12/06/2023 8:11 PM AKDT Station ID: [id number]
== END 2023-12-06 10:19 | disposition home or self-care (01) ==
LOC: DI 10:18
PROVIDERS: ATTEND Nurse Practitioner
DX: M25.511 Pain in right shoulder (principal); M79.621 Pain in right upper arm

== ENCOUNTER 2024-01-08 11:57 | Outpatient (CLI) | payer MEDICARE, BC | END 2024-01-08 11:58 | disposition home or self-care (01) | LOC: DI 11:57 | PROVIDERS: ATTEND Nurse Practitioner | DX: R06.02 Shortness of breath (principal) | CPT/HCPCS: 93307 ==

== ENCOUNTER 2024-02-01 08:08 | Outpatient (CLI) | payer MEDICARE, BC ==
[2024-02-01 08:22] LABS: BASOPHILS % (AUTO) 0.8 %; EOSINOPHILS # (AUTO) 0.1 10^3/uL (0.0-0.7); HCT - HEMATOCRIT 47.1 % (37.0-47.0); HGB - HEMOGLOBIN 15.4 g/dL (12.0-16.0); LYMPHOCYTES # (AUTO) 1.5 10^3/uL (1.5-3.5); LYMPHOCYTES % (AUTO) 38.8 %; MEAN CORPUSCULAR HEMOGLOBIN 30.8 pg (27.0-31.0); MEAN CORPUSCULAR HGB CONC 32.7 g/dL (32.0-36.0); MEAN CORPUSCULAR VOLUME 94.2 fL (81.0-99.0); MEAN PLATELET VOLUME 9.7 fL (7.9-10.8); MONOCYTES # (AUTO) 0.4 10^3/uL (0.0-1.0); MONOCYTES % (AUTO) 9.9 %; NEUTROPHILS # (AUTO) 1.9 10^3/uL (1.5-6.6); NEUTROPHILS % (AUTO) 48.2 %; PLT - PLATELET COUNT 152 10^3/uL (130-450); WHITE BLOOD COUNT 3.9 x10^3/uL (4.8-10.8)
[2024-02-01 08:41] LABS: ALBUMIN 4.1 g/dL (3.2-5.5); ALBUMIN/GLOBULIN RATIO 1.6 (1.0-2.2); ALKALINE PHOSPHATASE 82 IU/L (42-121); ALT ALANINE AMINOTRANSFERASE 21 IU/L (10-60); AST ASPARTATE AMINOTRANSFERASE 18 IU/L (10-42); BILIRUBIN,TOTAL 0.5 mg/dL (0.2-1.0); BUN - BLOOD UREA NITROGEN 21 mg/dL (6-20); CARBON DIOXIDE - CO2 30 mmol/L (21-32); CHLORIDE 105 mmol/L (101-111); CHOL/HDL RATIO 3.2 (<4.4); CHOLESTEROL 261 mg/dL; CREATININE 1.1 mg/dL (0.6-1.3); GFR - MDRD 48 (>89); GLUCOSE 103 mg/dL (74-104); HDL CHOLESTEROL 81 mg/dL; LDL CHOLESTEROL,CALCULATED 145 mg/dL; LDL/HDL RATIO 1.8 (<4.4); POTASSIUM 4.7 mmol/L (3.5-4.5); SODIUM 140 mmol/L (135-145); TOTAL PROTEIN 6.7 g/dL (6.4-8.9); TRIGLYCERIDES 173 mg/dL (48-352); VLDL CHOLESTEROL 35 mg/dL
[2024-02-01 08:49] LABS: ESTIMATED AVERAGE GLUCOSE 114 mg/dL (70-100); HEMOGLOBIN A1c% 5.6 % (4.27-6.07)
== END 2024-02-01 08:09 | disposition home or self-care (01) ==
LOC: LAB 08:08
PROVIDERS: ATTEND Physician Assistant Medical
DX: E78.5 Hyperlipidemia, unspecified (principal); R73.9 Hyperglycemia, unspecified; D69.6 Thrombocytopenia, unspecified
CPT/HCPCS: 36415; 80053; 80061; 83036; 83721; 85025

== ENCOUNTER 2024-06-05 07:39 | Emergency (ER) | payer MEDICARE, BC ==
--- NOTE | 2024-06-05 07:48 | ED Physician Documentation ---
PD HPI URI - Stated complaint Stated Complaint: WEAKNESS - History obtained from History obtained from: Patient, EMS - History of Present Illness Timing - onset: Yesterday Timing duration: Days (1) Timing details: Abrupt onset, Still present Associated symptoms: Fever, Chills, Nasal congestion, Dry cough Contributing factors: Sick contact (great granchildren were sick with URI symptoms exposed few days ago.) Review of Systems Constitutional: reports: Chills, Myalgias Neurologic: reports: Generalized weakness PD PAST MEDICAL HISTORY - Past Medical History Cardiovascular: None Respiratory: None Neuro: None Endocrine/Autoimmune: Other 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, 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 HEENT: None Psych: None Musculoskeletal: Osteoarthritis Derm: None - Past Surgical History Past Surgical History: Yes Ortho: Knee replacement, Arthroscopic surgery /[employer]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, 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 - Present Medications Home Medications: Ambulatory Orders Medication Instructions Recorded Confirmed Albuterol Sulf [Ventolin Hfa 2 - 3 puffs INH QID #1 each 06/05/24 Inhaler] Nirmatrelvir/Ritonavir [Paxlovid 1 each PO BID 5 Days #10 tab 06/05/24 300-100 mg Dose Pack] Ondansetron Odt [Zofran] 4 mg TL Q6H PRN #10 tablet 06/05/24 - Allergies Allergies/Adverse Reactions: Allergies Allergy/AdvReac Type Severity Reaction Status Date / Time codeine Allergy Unknown Verified 06/05/24 07:46 morphine Allergy Unknown Verified 06/05/24 07:46 hydrocodone bitartrate * AdvReac Intermediate "completely Verified 06/05/24 07:46 [From Vicodin] out of it after only one" oxycodone AdvReac Hallucinati Verified 06/05/24 07:46 ons - Social History Does the pt smoke?: No Smoking Status: Never smoker Does the pt drink ETOH?: No Does the pt have substance abuse?: No - Immunizations Immunizations are current?: Yes Immunizations: TDAP current <10years - POLST Patient has POLST: No PD ED PE NORMAL - Vitals Vital signs reviewed: Yes - General General: Alert and oriented X 3, No acute distress, Well developed/nourished - Neck Neck: Supple, no meningeal sign, No adenopathy - Cardiac Cardiac: RRR, No murmur - Respiratory Respiratory: No respiratory distress. No: Clear bilaterally (no coarse sounds. Has scattered wheezing. ) - Abdomen Abdomen: Soft, Non tender - Extremities Extremities: No edema, No calf tenderness / cord Results - Vitals Vitals: Vital Signs - 24 hr 06/05/24 06/05/24 06/05/24 07:46 08:45 09:11 Temperature 37.8 C 36.6 C Heart Rate 66 80 Respiratory 18 20 Rate Blood Pressure 127/61 O2 Saturation 96 06/05/24 10:15 Temperature 36.6 C Heart Rate 73 Respiratory 18 Rate Blood Pressure 113/58 L O2 Saturation 95 Oxygen O2 Source Room air - Labs Labs: Laboratory Tests 06/05/24 06/05/24 06/05/24 07:46 09:08 09:08 WBC 5.3 RBC 4.63 Hgb 14.4 Hct 43.4 MCV 93.7 MCH 31.1 H MCHC 33.2 RDW 13.1 Plt Count 130 MPV 9.9 Neut # (Auto) 4.0 Lymph # (Auto) 0.7 L [place] # (Auto) 0.5 Eos # (Auto) 0.0 Baso # (Auto) 0.0 Absolute Nucleated RBC 0.00 Nucleated RBC % 0.0 Sodium 134 L Potassium 4.1 Chloride 100 L Carbon Dioxide 27 Anion Gap 7.0 BUN 12 Creatinine 1.0 Estimated GFR (MDRD) 53 L Glucose 110 H Calcium 9.2 Magnesium 1.5 L Total Bilirubin 0.4 AST 17 ALT 17 Alkaline Phosphatase 73 Total Protein 6.2 L Albumin 3.8 Globulin 2.4 Albumin/Globulin Ratio 1.6 Lipase 16 Nasal Adenovirus (PCR) NOT DETECTED Nasal B. parapertussis DNA (PCR) NOT DETECTED Nasal Coronavir 229E PCR NOT DETECTED Nasal Coronavir HKU1 PCR NOT DETECTED Nasal Coronavir NL63 PCR NOT DETECTED Nasal Coronavir OC43 PCR NOT DETECTED Nasal Enterovir/Rhinovir PCR NOT DETECTED Nasal Influenza B PCR NOT DETECTED Nasal Influenza A PCR NOT DETECTED Nasal Parainfluen 1 PCR NOT DETECTED Nasal Parainfluen 2 PCR NOT DETECTED Nasal Parainfluen 3 PCR NOT DETECTED Nasal Parainfluen 4 PCR NOT DETECTED Nasal RSV (PCR) NOT DETECTED Nasal B.pertussis DNA PCR NOT DETECTED Nasal C.pneumoniae (PCR) NOT DETECTED Shlomo Human Metapneumo PCR NOT DETECTED Nasal M.pneumoniae (PCR) NOT DETECTED Nasal SARS-CoV-2 (PCR) DETECTED A PD Medical Decision Making - ED course Complexity details: reviewed results (COVID positive. WBC 5.4 normal. Chemistry with mag 1.5 mild low. Else nothing of note. LFTs are okay. ), considered differential (pt with flu like symptoms. Sats good at 96%. mild wheezing sounds. ), d/w patient Departure - Departure Disposition: 01 Home, Self Care Clinical Impression: Weakness, Acute viral syndrome, COVID-19 Condition: Stable Record reviewed to determine appropriate education?: Yes Instructions: ED Viral Syndrome Prescriptions: Nirmatrelvir/Ritonavir [Paxlovid 300-100 mg Dose Pack] 1 each PO BID 5 Days #10 tab Albuterol Sulf [Ventolin Hfa Inhaler] 2 - 3 puffs INH QID #1 each Ondansetron Odt [Zofran] 4 mg TL Q6H PRN #10 tablet PRN Reason: Nausea / Vomiting Comments: Your viral panel test was positive for COVID. I can prescribe the Paxlovid twice daily for 5 days at your request. It has small benefit statistically but may benefit more so for individuals. Stay well-hydrated. Tylenol every 4-6 hours for fevers and pains. Ondansetron if needed for nausea. Albuterol inhaler 2 to 3 puffs 4 times a day for the next week or so to help with the cough and wheezing. I sent your prescriptions to [facility] pharmacy. Forms: PCP List Discharge Date/Time: 06/05/24 10:15
[2024-06-05] MEDS: ACETAMINOPHEN 500 MG TABLET PO STA (08:41)
[2024-06-05] MEDS: ONDANSETRON ODT 4 MG TABLET TL STA (08:43)
[2024-06-05] MEDS: ALBUTEROL 1 PUFF INH STA (08:45)
[2024-06-05 08:57] LABS: B. PARAPERTUSSIS- RESP PCR PAN NOT DETECTED; B. PERTUSSIS- RESP PCR PANEL NOT DETECTED; C. PNEUMONIAE- RESP PCR PANEL NOT DETECTED; CORONAVIRUS 229E-RESP PCR NOT DETECTED; CORONAVIRUS HKU1-RESP PCR NOT DETECTED; CORONAVIRUS NL63-RESP PCR NOT DETECTED; CORONAVIRUS OC43-RESP PCR NOT DETECTED; HUMAN METAPNEUMOVIRUS NOT DETECTED; INFLUENZA A- RESP PCR PANEL NOT DETECTED; INFLUENZA B - RESP PCR PANEL NOT DETECTED; M. PNEUMONIAE- RESP PCR PANEL NOT DETECTED; PARAINFLUENZA VIRUS 1 NOT DETECTED; PARAINFLUENZA VIRUS 2 NOT DETECTED; PARAINFLUENZA VIRUS 3 NOT DETECTED; PARAINFLUENZA VIRUS 4 NOT DETECTED; RHINOVIRUS/ENTEROVIRUS NOT DETECTED; RSV- RESP PCR PANEL NOT DETECTED
[2024-06-05 08:59] LABS: SARS-CoV-2 -RESP PCR PANEL DETECTED
[2024-06-05 09:17] LABS: BASOPHILS % (AUTO) 0.4 %; EOSINOPHILS % (AUTO) 0.4 %; HCT - HEMATOCRIT 43.4 % (37.0-47.0); HGB - HEMOGLOBIN 14.4 g/dL (12.0-16.0); LYMPHOCYTES # (AUTO) 0.7 10^3/uL (1.5-3.5); LYMPHOCYTES % (AUTO) 13.2 %; MEAN CORPUSCULAR HEMOGLOBIN 31.1 pg (27.0-31.0); MEAN CORPUSCULAR HGB CONC 33.2 g/dL (32.0-36.0); MEAN CORPUSCULAR VOLUME 93.7 fL (81.0-99.0); MEAN PLATELET VOLUME 9.9 fL (7.9-10.8); MONOCYTES # (AUTO) 0.5 10^3/uL (0.0-1.0); NEUTROPHILS % (AUTO) 75.6 %; PLT - PLATELET COUNT 130 10^3/uL (130-450); RED BLOOD COUNT 4.63 10^6/uL (4.20-5.40); RED CELL DISTRIBUTION WIDTH 13.1 % (12.0-15.0); WHITE BLOOD COUNT 5.3 x10^3/uL (4.8-10.8)
[2024-06-05 09:33] LABS: MAGNESIUM 1.5 mg/dL (1.7-2.3)
[2024-06-05 09:39] LABS: ALBUMIN 3.8 g/dL (3.2-5.5); ALBUMIN/GLOBULIN RATIO 1.6 (1.0-2.2); BILIRUBIN,TOTAL 0.4 mg/dL (0.2-1.0); CALCIUM 9.2 mg/dL (8.5-10.3); POTASSIUM 4.1 mmol/L (3.5-4.5); TOTAL PROTEIN 6.2 g/dL (6.4-8.9)
[2024-06-05 10:24] VITALS: BP 113/58; O2SAT 95
== END 2024-06-05 10:15 | disposition home or self-care (01) ==
LOC: EDUNIT# → ED 07:39
DX: U07.1 COVID-19 (principal); B34.9 Viral infection, unspecified
CPT/HCPCS: 36415; 80053; 83690; 83735; 85025; 87633; 94640; 94664; 99284; A9270; Q0162